=== PATIENT | male | born 1955 | race Caucasian/White ===

== ENCOUNTER 2024-02-28 19:33 | Observation (INO) | payer MEDICARE, MEDICAID, SELFPAY ==
--- NOTE | ~2024-02-28 | CT_ITS ---
EXAMINATION: CT brain wo con DATE: 02/28/2024 20:10 INDICATION: left-sided weakness /numbness . TECHNIQUE: Computed tomography (CT) of the head was performed without intravenous contrast. The mA wa s adjusted according to patient size. Iterative reconstruction technique was employed. The dose-lengt h product was 681.00 mGy-cm. COMPARISON: None. FINDINGS: No acute intracranial hemorrhage or extra-axial fluid collection. No hydrocephalus, mass, or herniation. No acute ischemic infarct. Unremarkable dural venous sinus attenuation. No acute osseous abnormality. The aerated spaces are clear. Mild atrophy and chronic white matter change. Atherosclerotic intracranial calcification. IMPRESSION: No acute intracranial process. Reviewed, dictated and finalized at location K. MEAT COOK
--- NOTE | ~2024-02-28 | CT_ITS ---
CT ANGIOGRAM NECK AND HEAD History: Left-sided weakness. Technique: Serial spiral axial images through the head and neck were obtained during arterial phase I V injection of 100 cc of Omnipaque 350. 3-D postprocessing and MIP images were then reconstructed on the remote workstation. Dose reduction technique was used on this scan by utilizing automated exposur e control and iterative reconstruction technique. The dose-length product (DLP) was 1024.60 mGy-cm. CTA neck findings: Bilateral vertebral arteries are patent. Right vertebral artery terminates as the right PICA, normal variant. Bilateral common carotid, internal carotid, and external carotid arterie s are patent. There is calcified plaque at the origin of the right internal carotid artery without si gnificant stenosis. The proximal right internal carotid artery demonstrates 0% stenosis relative to t he normal distal artery lumen diameter. The proximal left internal carotid artery demonstrates 0% montse nosis relative to the normal distal artery lumen diameter. CTA head findings: Distal vertebral arteries, basilar artery, and posterior cerebral arteries are pat ent. Distal internal carotid arteries, middle cerebral arteries, and anterior cerebral arteries are p atent. No large vessel occlusion or stenosis. No aneurysm. Impression: No significant abnormality seen. Reviewed, dictated and finalized at location M. TEGIC ACCOUNT EXECUTIVE Impression: No significant abnormality seen.
--- NOTE | ~2024-02-28 | MR_ITS ---
MRI of the brain Clinical History: Left-sided weakness Technique: Axial and sagittal T1-weighted images were acquired. These were followed by axial T2-weigh maurice, diffusion weighted, gradient, and FLAIR images. Findings: There is no acute infarct, internal hemorrhage, or mass lesion. There are moderate chronic white matter ischemic changes in the periventricular white matter bilaterally. Ventricles and subarachnoid spaces are mildly dilated. Orbits are unremarkable. Paranasal sinuses and mastoid air cells are essentially clear. Major intracranial flow voids are intact. Sagittal midline structures are intact. IMPRESSION: No acute infarct, intracranial hemorrhage, or mass lesion. Moderate chronic microvascular ischemic change and mild generalized atrophy. Reviewed, dictated and finalized at [facility]. ICATION SECURITY CONSULTANT
--- NOTE | ~2024-02-28 | XR_ITS ---
EXAMINATION: XR chest 1V portable Exam Date/Time: 02/28/2024 19:58 RENEWALS REPRESENTATIVE HISTORY: shortness of breath Comparison: 05/24/2015. RESULT: Lines, tubes, and devices: None. Lungs and pleura: Clear. Right midlung calcified granulomas. Cardiomediastinal silhouette: Stable. Right hilar node calcification. Other: No acute osseous or upper abdominal finding. IMPRESSION: No acute cardiopulmonary process. Reviewed, dictated and finalized at location K. WALS REPRESENTATIVE
[2024-02-28 19:36] VITALS: BP 144/82; PULSE 75; RESP 18; TEMP 37.3; O2SAT 99
--- NOTE | 2024-02-28 19:40 | ECG_ITS ---
Test Date: 2024-02-28 19:48:56 Measurements Intervals [place] Rate: 72 P: 46 AL: 164 QRS: -44 QRSD: 178 T: 127 QT: 469 QTc: 513 Interpretive Statements SINUS RHYTHM LEFT AXIS DEVIATION POSSIBLE LEFT ATRIAL ENLARGEMENT LEFT BUNDLE BRANCH BLOCK ABNORMAL ECG No previous ECG available for comparison Electronically Signed On 02-28-2024 20:53:22 DOCTOR OF NATUROPATHIC MEDICINE by Philip Regan D.O.
--- NOTE | 2024-02-28 19:52 | PC.NURSE ---
68 year old male bibems for stated weakness of the Left Side and SOB. Patient placed on fresh work wrapper layer o2 at 98% and work of breathing is normal, no accessory muscle usage. This patient is homeless, unkempt. Patient has history of COPD and Cardiac but does not take medication as prescribed because he states it makes him not feel well. 18 G IV to Left AC upon arrival.
--- NOTE | 2024-02-28 19:58 | ED.GENADULT ---
HPI - General Adult General Chief complaint: Weakness Stated complaint: weakness and dyspnea Time Seen by Provider: 02/28/24 19:43 History of Present Illness HPI narrative: patient is a 68-year-old gentleman who presents emergency department with chief complaint of shortness of breath and left-sided numbness. The patient reports that he was at [facility] across the street from [facility] and started having shortness of breath and noticed that he had weakness in his left arm and tingling in his left arm and leg. Patient reports that he was unsteady with his gait and reports that they called EMS and were told that [facility] is not accepting patients currently and they would have to take him to another hospital. The patient states that his tingling in his arm and weakness in his arm has improved and reports that he has some slight tingling in his left elbow area the patient reports that he has had shortness of breath with exertion Related Data Home Medications Medication Instructions Recorded Confirmed pramipexole 0.5 mg tablet 0.5 mg PO TID 05/07/19 Allergies Allergy/AdvReac Type Severity Reaction Status Date / Time Penicillins Allergy Unknown Verified 09/22/13 14:24 Review of Systems Review of Systems: A 10 system review of systems was completed on the patient and is negative except for what is stated in the HPI. Nursing and ancillary documentation was reviewed. [facility] Family History Family History Sibling Patient's brother is Mother Family history unknown, Onset Age: 81 Other Diabetes mellitus Family history of allergic disorder Family history of cardiovascular disease Family history of malignant neoplasm Hypertension Social History Social History Smoking status: Heavy tobacco smoker Alcohol intake: current Exam Narrative: GENERAL: Well-appearing, well-nourished, and in no acute distress. HEAD: Normocephalic, atraumatic. EYES: PERRLA and EOMI. ENT: Nares clear, no rhinorrhea or epistaxis. Mucous membranes moist. NECK: Supple. CHEST: Clear to auscultation. No respiratory distress. HEART: Regular rate and rhythm. No murmur heard. Normal peripheral pulses. ABDOMEN: Soft, nontender, nondistended, normal active bowel sounds. EXTREMITIES: Normal range of motion. No edema. SKIN: Warm, dry, no rash. NEURO: No focal deficits. Alert and oriented x3. PSYCH: Normal mood and affect. Course Vital Signs Vital signs: Vital Signs Temperature 37.3 C 02/28/24 19:36 Pulse Rate 75 02/28/24 19:36 Respiratory Rate 18 02/28/24 19:36 Blood Pressure 144/82 H 02/28/24 19:36 Pulse Oximetry 99 02/28/24 19:36 Oxygen Delivery Room Air 02/28/24 19:36 Temperature 37.3 C 02/28/24 19:36 Pulse Rate 75 02/28/24 19:36 Respiratory Rate 18 02/28/24 19:36 Blood Pressure 144/82 H 02/28/24 19:36 Pulse Oximetry 99 02/28/24 19:36 Oxygen Delivery Room Air 02/28/24 19:36 Medical Decision Making MDM Narrative Medical decision making narrative: NIH is 0 differential diagnosis includes ACS, TIA, near syncope, electrolyte abnormality, CC was within normal limits CMP was within normal limits troponin 0.029 repeat is 0.[address] head showed no acute abnormality chest x-ray showed no focal infiltrate CTA head neck showed no evidence of large vessel occlusion Vital Signs Vital Signs: Vital Signs Temperature 37.3 C 02/28/24 19:36 Pulse Rate 75 02/28/24 19:36 Respiratory Rate 18 02/28/24 19:36 Blood Pressure 144/82 H 02/28/24 19:36 Pulse Oximetry 99 02/28/24 19:36 Oxygen Delivery Room Air 02/28/24 19:36 Temperature 37.3 C 02/28/24 19:36 Pulse Rate 75 02/28/24 19:36 Respiratory Rate 18 02/28/24 19:36 Blood Pressure 144/82 H 02/28/24 19:36 Pulse Oximetry 99 02/28/24 19:36 Oxygen Delivery Room Air 02/28/24 19:36 Lab Data 02/28/24 20:19 02/28/24 20:19 Labs: Lab Results 02/28/24 02/28/24 02/28/24 Range/Units 20:05 20:19 22:37 WBC 6.1 (4.5-10.0) K/mm3 RBC 3.90 L (4.6-6.20) M/mm3 Hgb 11.5 L (14.0-18.0) g/dL Hct 34.7 L (42.0-52.0) % MCV 89.0 (80-100) fl MCH 29.5 (26-34) pg MCHC 33.1 (32-36) g/dl RDW 13.4 (11.5-14.5) % Plt Count 268 (150-375) k/mm3 MPV 11.5 H (7.4-10.4) fl Immature Gran % (Auto) 0.5 (0-0.5) % Neut % (Auto) 63.3 (45.5-73.1) % Lymph % (Auto) 19.2 (18.3-44.2) % [place] % (Auto) 10.3 H (2.6-8.5) % Eos % (Auto) 5.1 H (0-4.4) % Baso % (Auto) 1.6 H (0.2-1.2) % Lymph # (Auto) 1.17 (0.9-3.2) K/mm3 [place] # (Auto) 0.6 (0.1-0.6) K/mm3 Eos # (Auto) 0.3 (0-0.3) K/mm3 Baso # (Auto) 0.1 (0.0-0.1) K/mm3 Abs Immat Gran (auto) 0.03 (0.00-0.031) K/mm3 Absolute Neuts (auto) 3.9 (1.3-6.7) K/mm3 Absolute Nucleated RBC 0.000 (0.0-0.012) K/mm3 Nucleated RBC % 0.0 (0.0-0.2) % PT 13.6 (11.1-14.7) Seconds INR 1.0 APTT 28.4 (22.3-36.8) Seconds Sodium 138 (137-145) mmol/L Potassium 3.7 (3.4-5.0) mmol/L Chloride 106 (98-107) mmol/L Carbon Dioxide 24 (22-30) mmol/L Anion Gap 8 (4-12) mmol/L BUN 23 H (9-20) mg/dL Creatinine 0.90 (0.7-1.3) mg/dL Estim Creat Clear Calc 61 ml/min Estimated GFR > 60 (59 - ) Glucose 103 (65-110) mg/dL Lactic Acid 1.0 (0.7-2.0) mmol/L Calcium 9.0 (8.4-10.2) mg/dL Magnesium 2.1 (1.6-2.3) mg/dL Total Bilirubin 0.8 (0.2-1.3) mg/dL AST 21 (17-59) U/L ALT 9 (6-50) U/L Alkaline Phosphatase 71 (38-126) U/L Troponin I 0.029 0.034 (0.000-0.034) ng/mL NT-Pro-B Natriuret Pep 2770 H (19.9-100) pg/mL Total Protein 7.0 (6.3-8.2) g/dL Albumin 4.1 (3.5-5.1) g/dL Procalcitonin 0.0 ng/mL Urine Color Yellow (Yellow) Urine Appearance Clear (Clear) Urine pH 6.5 (5.0-9.0) Ur Specific [place] 1.024 (1.001-1.035) Urine Protein Negative (Negative) mg/dL Urine Glucose (UA) Negative (Negative) mg/dL Urine Ketones Trace H (Negative) mg/dL Ur Blood (Man) Negative (Negative) Urine Nitrate Negative (Negative) Urine Bilirubin Negative (Negative) Urine Urobilinogen 1.0 (<2.0) mg/dL Leukocyte Esterase Rfl Negative (Negative) JOSE/UL Influenza A (RT-PCR) Negative (Negative) Influenza B (RT-PCR) Negative (Negative) RSV (RT-PCR) Negative (Negative) SARS-CoV-2 RNA (RT-PCR) Negative (Negative) Discharge Plan Discharge Clinical Impression: Left sided numbness, Breath shortness Patient Disposition: Still a Patient Condition: Stable Prescriptions: No Action pramipexole 0.5 mg tablet 0.5 mg PO TID Follow-up/Referrals: Cathleen,Braxton Shultz MD [Non-Staff] - Time of Disposition: 01:30
[2024-02-28 20:28] LABS: Basophils Absolute Auto 0.1 K/mm3 (0.0-0.1); Basophils Percent Auto 1.6 % (0.2-1.2); Eosinophils Absolute Auto 0.3 K/mm3 (0-0.3); Eosinophils Percent Auto 5.1 % (0-4.4); Hematocrit 34.7 % (42.0-52.0); Hemoglobin 11.5 g/dL (14.0-18.0); Immature Granulocyte Absolute 0.03 K/mm3 (0.00-0.031); Immature Granulocyte Percent A 0.5 % (0-0.5); Lymphocytes Absolute Auto 1.17 K/mm3 (0.9-3.2); Lymphocytes Percent Auto 19.2 % (18.3-44.2); Mean Corpuscular HGB Conc 33.1 g/dl (32-36); Mean Corpuscular Hemoglobin 29.5 pg (26-34); Mean Platelet Volume 11.5 fl (7.4-10.4); Monocytes Absolute Auto 0.6 K/mm3 (0.1-0.6); Monocytes Percent Auto 10.3 % (2.6-8.5); Neutrophils Absolute Auto 3.9 K/mm3 (1.3-6.7); Neutrophils Percent Auto 63.3 % (45.5-73.1); Platelet Count Result 268 k/mm3 (150-375); Red Cell Distribution Width 13.4 % (11.5-14.5); White Blood Count 6.1 K/mm3 (4.5-10.0)
[2024-02-28 20:42] LABS: Prothrombin Time 13.6 Seconds (11.1-14.7)
[2024-02-28 20:43] LABS: Partial Thromboplastin Time 28.4 Seconds (22.3-36.8)
[2024-02-28 20:47] LABS: Alanine Aminotransferase 9 U/L (6-50); Albumin Level 4.1 g/dL (3.5-5.1); Alkaline Phosphatase 71 U/L (38-126); Anion Gap 8 mmol/L (4-12); Aspartate Amino Transferase 21 U/L (17-59); Bilirubin,Total 0.8 mg/dL (0.2-1.3); Blood Urea Nitrogen 23 mg/dL (9-20); Carbon Dioxide 24 mmol/L (22-30); Chloride 106 mmol/L (98-107); Estimated CRCL calculation 61 ml/min; Estimated Glomerular Filt Rate > 60; Glucose 103 mg/dL (65-110); Magnesium 2.1 mg/dL (1.6-2.3); Potassium 3.7 mmol/L (3.4-5.0); Sodium 138 mmol/L (137-145)
[2024-02-28 20:59] LABS: NT Pro B Type Natriuretic Pept 2770 pg/mL (19.9-100); Troponin I 0.029 ng/mL (0.000-0.034)
[2024-02-28 21:05] LABS: Influenza A QL RT-PCR Negative (Negative); Influenza B QL RT-PCR Negative (Negative); RSV RNA, RT-PCR Negative (Negative); SARS-CoV-2 RNA PCR Negative (Negative)
[2024-02-28 22:46] LABS: Add Urine Microscopic? NO; Appearance Urine Clear (Clear); Bilirubin Urine Negative (Negative); Blood Urine Negative (Negative); Color Urine Yellow (Yellow); Glucose Urine UA Negative (Negative); Ketones Urine Trace mg/dL (Negative); Leukocyte Esterase Ur Negative LEU/UL (Negative); Nitrate Urine Negative (Negative); Protein Urine Negative (Negative); Specific Grav Ur 1.024 (1.001-1.035); pH Urine 6.5 (5.0-9.0)
[2024-02-28 23:05] LABS: Troponin I 0.034 ng/mL (0.000-0.034)
[2024-02-29] VITALS (20 sets, daily range): BP systolic 109–143; BP diastolic 57–72; PULSE 66–91; RESP 16–20; TEMP 36.3–36.8; O2SAT 95–98; BMI 18.8
[2024-02-29] MEDS: ASPIRIN 81 MG CHEWABLE TABLET 324 MG PO (01:29)
[2024-02-29] MEDS: IPRATROPIUM 0.5 MG/ALBUTEROL SULFATE 2.5 MG AMPUL.NEB 3 ML INHALATION ×4 (02:23→20:04)
--- NOTE | 2024-02-29 02:30 | ADMGEN ---
This patient, Charles Choudhury, was admitted to Medical Room 255-. Patient/family oriented to hospital policies and general routines including ID bracelet, bed and alarms, visiting hours, pain management, procedures, bathroom and other care routines, personal items, smoking policy, room service/diet, and visiting hours. Information on how to activate the Rapid Response Team has been discussed. Patient/Family are encouraged to report perceived risks to care and to ask questions if they do not understand what they are told or what they should do.
[2024-02-29] MEDS: ACETAMINOPHEN 325 MG TABLET 650 MG PO (02:56)
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
[2024-02-29 03:53] LABS: Ethanol < 10 mg/dL (<10)
[2024-02-29] MEDS: FLUTICASONE/SALMETEROL 115-21 MCG INHALER 1 PUFF 2 PUFF INHALATION ×2 (09:05→20:04)
[2024-02-29] MEDS: ASPIRIN 325 MG TABLET PO (10:12)
[2024-02-29 10:14] LABS: Amphetamine Screen Urine Negative (Negative); Barbiturate Screen Urine Negative (Negative); Benzodiazepines Screen Urine Negative (Negative); Cannabinoid Screen Urine Negative (Negative); Cocaine Screen Urine Negative (Negative); Methadone Screen Urine Negative (Negative); Opiate Screen Urine Negative (Negative); Phencyclidine Screen Urine Negative (Negative)
--- NOTE | 2024-02-29 15:53 | PM.IMPN ---
Progress Note: A&P Assessment and Plan (1) Left sided numbness: Code(s): R20.0 - Anesthesia of skin Status: Acute (2) Shortness of breath: Code(s): R06.02 - Shortness of breath Status: Acute (3) Polysubstance abuse: Code(s): F19.10 - Other psychoactive substance abuse, uncomplicated Status: Acute (4) Unsheltered homelessness: Code(s): Z59.02 - Unsheltered homelessness Status: Acute (5) COPD (chronic obstructive pulmonary disease): Qualifiers: COPD type: unspecified COPD Qualified Code(s): J44.9 - Chronic obstructive pulmonary disease, unspecified Code(s): J44.9 - Chronic obstructive pulmonary disease, unspecified Status: Acute Plan This is a 68-year-old male who presents to the ED with left-sided weakness and numbness which has resolved completely after few hours.. CT of the head and CT of the head and neck demonstrated no acute process. Patient is on telemetry and there is been no arrhythmias. Patient reports he had a recent echocardiogram any there august or December. MRI brain this a.m. negative for acute stroke. Patient already on aspirin which will be continued. Treat as TIA. Statin. Order echo Shortness of breath related to underlying COPD. Chest x-ray with no acute abnormality. Started on Advair. Homelessness: Care coordination consultation Hepatitis-C HIV History of IV drug use has not used since 1997. Chronic tobacco use Congestive heart failure COPD Noncompliance with medication therapy DVT prophylaxis Lovenox DNR Subjective Date/time seen: 02/29/24 15:53 Interval history: no overnight evvents, weakness has resolved. no new compalints. Review of Systems Review of Systems: All systems reviewed & are unremarkable except as noted in HPI and below Exam Narrative: GENERAL: Well-appearing, well-nourished, and in no acute distress. HEAD: Normocephalic, atraumatic. EYES: PERRLA and EOMI. ENT: Nares clear, no rhinorrhea or epistaxis. Mucous membranes moist. NECK: Supple. CHEST: Clear to auscultation. No respiratory distress. HEART: Regular rate and rhythm. No murmur heard. Normal peripheral pulses. ABDOMEN: Soft, nontender, nondistended, normal active bowel sounds. EXTREMITIES: Normal range of motion. No edema. SKIN: Warm, dry, no rash. NEURO: No focal deficits. Alert and oriented x3. PSYCH: Normal mood and affect. Objective Data Vital Signs Vital Signs: Vital Signs - 24 hr 02/28/24 19:36 02/29/24 02:22 02/29/24 02:26 Temperature 99.1 F Pulse Rate 75 80 Respiratory Rate 18 19 Blood Pressure 144/82 H Pulse Oximetry 99 96 Oxygen Delivery Room Air Room Air Fraction of Inspired Oxygen 02/29/24 02:30 02/29/24 02:21 02/29/24 03:16 Temperature 97.3 F L Pulse Rate 78 75 78 Respiratory Rate 19 18 19 Blood Pressure 143/72 H Pulse Oximetry 97 96 Oxygen Delivery Room Air Fraction of Inspired Oxygen 02/29/24 04:00 02/29/24 06:00 02/29/24 08:59 Temperature 98.3 F Pulse Rate 84 87 Respiratory Rate 18 Blood Pressure 109/72 Pulse Oximetry 96 95 Oxygen Delivery Room Air Fraction of Inspired Oxygen 02/29/24 08:59 02/29/24 09:05 02/29/24 10:12 Temperature Pulse Rate 90 85 83 Respiratory Rate 20 20 Blood Pressure Pulse Oximetry Oxygen Delivery Fraction of Inspired Oxygen 02/29/24 13:33 02/29/24 13:33 02/29/24 13:39 Temperature Pulse Rate 91 90 Respiratory Rate 20 20 Blood Pressure Pulse Oximetry 96 Oxygen Delivery Room Air Fraction of Inspired Oxygen 02/29/24 13:44 02/29/24 12:00 Temperature 98 F Pulse Rate 77 66 Respiratory Rate 16 Blood Pressure 140/57 L Pulse Oximetry 98 Oxygen Delivery Fraction of Inspired Oxygen Intake/Output Intake/Output: Intake & Output 02/26/24 02/27/24 02/28/24 02/29/24 23:59 23:59 23:59 23:59 Intake Total 360 Output Total 0 Balance 360 Meds/Results Medications: Active Medications Generic Name Dose Route Start Last Admin Trade Name Freq PRN Reason Stop Dose Admin Acetaminophen 650 mg 02/29/24 02:30 02/29/24 02:56 Acetaminophen 325 Mg Tablet PO 650 mg Q6H PRN Administration Mild Pain (1-3) or Fever Albuterol/Ipratropium 3 ml 02/29/24 02:00 02/29/24 13:33 Ipratropium 0.5 Mg/Albuterol Sulfate 2.5 Mg Ampul.Neb 3 Ml INHALATION 3 ml Q6HRT GRACE Administration Aspirin 325 mg 02/29/24 08:00 02/29/24 10:12 Aspirin 325 Mg Tablet PO 325 mg DAILY@0800 GRACE Administration Diphenhydramine HCl 25 mg 02/29/24 03:46 Diphenhydramine Hcl Cap 25 Mg Capsule PO HS PRN Allergy Symptoms/insomnia Fluticasone/Salmeterol 2 puff 02/29/24 08:00 02/29/24 09:05 Fluticasone/Salmeterol 115-21 Mcg Inhaler 1 Puff INHALATION 2 puff Q12HRT GRACE Administration Radiology Results: ITS Impressions Chest X-Ray 02/28/24 20:09 IMPRESSION: No acute cardiopulmonary process. Head CT 02/28/24 20:13 IMPRESSION: No acute intracranial process. Head/Neck CTA 02/29/24 09:04 Impression: No significant abnormality seen. Brain MRI 02/29/24 09:12 IMPRESSION: No acute infarct, intracranial hemorrhage, or mass lesion. Moderate chronic microvascular ischemic change and mild generalized atrophy. Labs Labs: Laboratory Results - last 24 hr 02/28/24 02/28/24 02/28/24 20:05 20:19 22:37 WBC 6.1 RBC 3.90 L Hgb 11.5 L Hct 34.7 L MCV 89.0 MCH 29.5 MCHC 33.1 RDW 13.4 Plt Count 268 MPV 11.5 H Immature Gran % (Auto) 0.5 Neut % (Auto) 63.3 Lymph % (Auto) 19.2 Treasure % (Auto) 10.3 H Eos % (Auto) 5.1 H Baso % (Auto) 1.6 H Lymph # (Auto) 1.17 Treasure # (Auto) 0.6 Eos # (Auto) 0.3 Baso # (Auto) 0.1 Abs Immat Gran (auto) 0.03 Absolute Neuts (auto) 3.9 Absolute Nucleated RBC 0.000 Nucleated RBC % 0.0 PT 13.6 INR 1.0 APTT 28.4 Sodium 138 Potassium 3.7 Chloride 106 Carbon Dioxide 24 Anion Gap 8 BUN 23 H Creatinine 0.90 Estim Creat Clear Calc 61 Estimated GFR > 60 Glucose 103 Lactic Acid 1.0 Calcium 9.0 Magnesium 2.1 Total Bilirubin 0.8 AST 21 ALT 9 Alkaline Phosphatase 71 Troponin I 0.029 0.034 NT-Pro-B Natriuret Pep 2770 H Total Protein 7.0 Albumin 4.1 Procalcitonin 0.0 Urine Color Yellow Urine Appearance Clear Urine pH 6.5 Ur Specific [place] 1.024 Urine Protein Negative Urine Glucose (UA) Negative Urine Ketones Trace H Ur Blood (Man) Negative Urine Nitrate Negative Urine Bilirubin Negative Urine Urobilinogen 1.0 Leukocyte Esterase Rfl Negative Urine Opiates Screen Urine Methadone Screen Ur Barbiturates Screen Ur Phencyclidine Scrn Ur Amphetamine Screen U Benzodiazepines Scrn Urine Cocaine Screen U Cannabinoids Screen Ethyl Alcohol < 10 Influenza A (RT-PCR) Negative Influenza B (RT-PCR) Negative RSV (RT-PCR) Negative SARS-CoV-2 RNA (RT-PCR) Negative 02/29/24 09:28 WBC RBC Hgb Hct MCV MCH MCHC RDW Plt Count MPV Immature Gran % (Auto) Neut % (Auto) Lymph % (Auto) Treasure % (Auto) Eos % (Auto) Baso % (Auto) Lymph # (Auto) Treasure # (Auto) Eos # (Auto) Baso # (Auto) Abs Immat Gran (auto) Absolute Neuts (auto) Absolute Nucleated RBC Nucleated RBC % PT INR APTT Sodium Potassium Chloride Carbon Dioxide Anion Gap BUN Creatinine Estim Creat Clear Calc Estimated GFR Glucose Lactic Acid Calcium Magnesium Total Bilirubin AST ALT Alkaline Phosphatase Troponin I NT-Pro-B Natriuret Pep Total Protein Albumin Procalcitonin Urine Color Urine Appearance Urine pH Ur Specific [place] Urine Protein Urine Glucose (UA) Urine Ketones Ur Blood (Man) Urine Nitrate Urine Bilirubin Urine Urobilinogen Leukocyte Esterase Rfl Urine Opiates Screen Negative Urine Methadone Screen Negative Ur Barbiturates Screen Negative Ur Phencyclidine Scrn Negative Ur Amphetamine Screen Negative U Benzodiazepines Scrn Negative Urine Cocaine Screen Negative U Cannabinoids Screen Negative Ethyl Alcohol Influenza A (RT-PCR) Influenza B (RT-PCR) RSV (RT-PCR) SARS-CoV-2 RNA (RT-PCR)
[2024-02-29 17:26] LABS: Cholesterol 123 mg/dL (0-200); HDL Direct 46 mg/dL; Triglycerides 87 mg/dL (<150)
[2024-02-29 17:37] LABS: LDL Cholesterol Direct 58 mg/dL
[2024-02-29 19:11] LABS: Hemoglobin A1C 5.7 % (<5.7)
[2024-03-01] VITALS (7 sets, daily range): BP systolic 163; BP diastolic 88; PULSE 74–94; RESP 16–18; TEMP 36.6; O2SAT 96–100
--- NOTE | 2024-03-01 | ECHO_ITS ---
Patient Info Name: Charles Choudhury Age: 68 years : 1955 Gender: Male Ht: 67 in Wt: 115 lbs BSA: 1.56 m2 HR: 97 bpm BP: 156 / 88 mmHg Heart Rhythm: Sinus Rhythm Technical Quality: Good Exam Date: 03/01/2024 10:25 AM Exam Location: Echo Lab Patient Status: Inpatient Admit Date: 02/29/2024 Staff Ordering Physician: Naveed Arizmendi MD Automatic Winder Operator: Errol Moe RDCS Attending Provider: Sangeeta Vale DO Exam Type: CA echo doppler w bubble study Study Info Indications - TIA Complete two-dimensional, color flow and Doppler transthoracic echocardiogram is performed with agitated saline. Summary 1. Left ventricular systolic function is severely reduced, estimated at 25-30%. 2. There is mildly increased left ventricular wall thickness. 3. The left ventricular diastolic function is grade I diastolic dysfunction. 4. There is mild mitral valve regurgitation. 5. The mitral valve has thickened leaflets. 6. There is mild tricuspid valve regurgitation. 7. No pulmonary hypertension, estimated pulmonary arterial systolic pressure is 29 mmHg. Left Ventricle Left ventricular chamber dimension is normal. Left ventricular systolic function is severely reduced, estimated at 25-30%. There is mildly increased left ventricular wall thickness. The left ventricular diastolic function is grade I diastolic dysfunction. Right Ventricle Right ventricular chamber dimension is normal. Right ventricular systolic function is normal. Left Atria Left atrial chamber dimension is normal. Right Atria Right atrial chamber dimension is normal. Atrial Septum Intact interatrial septum visualized by agitated saline imaging. Aortic Valve The aortic valve is trileaflet. There is mild aortic valve sclerosis. There is no aortic valve stenosis. There is no aortic valve regurgitation. Pulmonic Valve The pulmonic valve is normal. There is no pulmonic valve stenosis. There is no pulmonic regurgitation. Mitral Valve The mitral valve has thickened leaflets. There is no mitral valve stenosis. There is mild mitral valve regurgitation. Tricuspid Valve The tricuspid valve leaflets are normal. There is no significant tricuspid valve stenosis. There is mild tricuspid valve regurgitation. No pulmonary hypertension, estimated pulmonary arterial systolic pressure is 29 mmHg. Pericardium/Pleural The pericardium appears normal. There is no pericardial effusion. Inferior Vena Cava Normal inferior vena cava with >50% collapse upon inspiration consistent with Empty right atrial pressure, 5 mmHg. Aorta The aortic root size at the sinus of Valsalva is normal. The prox ascending aorta size is normal. Left Ventricular Outflow Tract Name Value Normal LVOT 2D LVOT Diameter 1.9 cm LVOT Doppler LVOT Peak Gradient 5 mmHg LVOT Mean Gradient 3 mmHg LVOT VTI 19 cm LVOT VTI/AV VTI Ratio 0.7 LVOT Stroke Volume 55 ml LVOT CO 3.6 l/min LVOT CI 2.3 l/min/m2 Mitral Valve Name Value Normal MV Doppler MV Decel Wilkinson 450 cm/s2 MV PHT 49 ms MV Area (PHT) 4.5 cm2 4.0-5.0 MV Regurgitation Doppler MR Peak Gradient 81 mmHg MV Diastolic Function MV E Peak Velocity 76 cm/s MV A Peak Velocity 102 cm/s MV E/A 0.7 MV Decel Time 169 ms MV Annular TDI MV E/e' (Septal) 13.7 <=8.0 MV E/e' (Lateral) 8.2 <=8.0 MV E/e' (Average) 11.0 Tricuspid Valve Name Value Normal TV Regurgitation Doppler TR Peak Velocity 244 cm/s TR Peak Gradient 24 mmHg Estimated PAP/RSVP RA Pressure 5 mmHg <=5 PA Systolic Pressure 29 mmHg <36 RV Systolic Pressure 29 mmHg <36 Aortic Valve Name Value Normal AV Doppler AV Peak Velocity 138 cm/s AV Peak Gradient 8 mmHg AV Mean Gradient 5 mmHg AV VTI 27 cm AV Area (Cont Eq VTI) 2.0 cm2 >=3.0 AV Area (Cont Eq Miah) 2.3 cm2 AV Regurgitation 2D LVOT Area 2.9 cm2 Ventricles Name Value Normal LV Dimensions 2D/MM IVS Diastolic Thickness (2D) 1.1 cm 0.6-1.0 LVID Diastole (2D) 5.6 cm 4.2-5.8 LVIW Diastolic Thickness (2D) 1.2 cm 0.6-1.0 LVID Systole (2D) 4.0 cm 2.5-4.0 LVOT Diameter 1.9 cm LV Mass (2D Cubed) 251.17 g 88.00-224.00 LV Mass Index (2D Cubed) 161 g/m2 49-115 Relative Wall Thickness (2D) 0.42 LV Fractional Shortening/Ejection Fraction 2D/MM LV Fractional Shortening (2D) 28 % 25-43 LV EF (2D Teicholz) 53 % 52-72 LV Diastolic Volume (4C MOD) 142 ml LV EF (4C MOD) 46 % LV Diastolic Volume (2C MOD) 162 ml LV EF (2C MOD) 42 % LV Diastolic Volume (BP MOD) 152 ml 62-150 LV Diastolic Volume Index (BP MOD) 98 ml/m2 34-74 LV Systolic Volume (BP MOD) 88 ml 21-61 LV Systolic Volume Index (BP MOD) 57 ml/m2 11-31 LV EF (BP MOD) 42 % 52-72 LV Diastolic Length (4C) 9.1 cm LV Systolic Length (4C) 7.3 cm LV Stroke Volume (4C MOD) 66 ml Atria Name Value Normal LA Dimensions LA Volume (4C A-L) 47 ml LA Volume (BP A-L) 49 ml RA Dimensions RA Area (4C) 13.1 cm2 <=18.0 Report Signatures
[2024-03-01] MEDS: FLUTICASONE/SALMETEROL 115-21 MCG INHALER 1 PUFF 2 PUFF INHALATION (07:16)
[2024-03-01] MEDS: IPRATROPIUM 0.5 MG/ALBUTEROL SULFATE 2.5 MG AMPUL.NEB 3 ML INHALATION (07:17)
[2024-03-01] MEDS: ASPIRIN 325 MG TABLET PO (07:57)
--- NOTE | 2024-03-01 12:12 | PM.DS ---
DS: Admitting Diagnosis Discharge Date 03/01/2024 Admitting Diagnosis Left-sided weakness DS: Discharge Diagnosis Discharge Diagnosis (1) Left sided numbness: Code(s): R20.0 - Anesthesia of skin Status: Acute (2) Shortness of breath: Code(s): R06.02 - Shortness of breath Status: Acute (3) Polysubstance abuse: Code(s): F19.10 - Other psychoactive substance abuse, uncomplicated Status: Acute (4) Unsheltered homelessness: Code(s): Z59.02 - Unsheltered homelessness Status: Acute (5) COPD (chronic obstructive pulmonary disease): Qualifiers: COPD type: unspecified COPD Qualified Code(s): J44.9 - Chronic obstructive pulmonary disease, unspecified Code(s): J44.9 - Chronic obstructive pulmonary disease, unspecified Status: Acute DS: Summary Hospital Course Hospital Course: This is a 68-year-old male who presents to the ED with left-sided weakness and numbness which has resolved completely after few hours.. CT of the head and CT of the head and neck demonstrated no acute process. Patient is on telemetry and there is been no arrhythmias. Patient reports he had a recent echocardiogram any there august or December. MRI brain this a.m. negative for acute stroke. Patient already on aspirin which will be continued. Treat as TIA. Statin. Recent echo reviewed. EF was 19 % in August 2023 just followed by echo in December 2023 which is up to 25%. He has been started on Coreg and losartan and Aldactone. Does not seem to be taking medication. Advised to follow-up with cardiology. Repeat echo here was done she is pending currently but approximately on 40% EF noted. A1c is normal and LDL is 58. He was on carvedilol and losartan her medical records obtained from [place] which he is noncompliant with. He Is advised to stay on this medication and follow up with [employer]. Shortness of breath related to underlying COPD. Chest x-ray with no acute abnormality. Started on Advair and will be ordered Homelessness: Care coordination consultation Hepatitis-C HIV History of IV drug use has not used since 1997. Chronic tobacco use Congestive heart failure well compensated advised to follow-up with cardiology for medications COPD Noncompliance with medication therapy DVT prophylaxis Lovenox DNR Time Spent with Patient Time attestation: Total time spent providing and/or coordinating discharge services: 35 minutes Exam Narrative: GENERAL: Well-appearing, well-nourished, and in no acute distress. HEAD: Normocephalic, atraumatic. EYES: PERRLA and EOMI. ENT: Nares clear, no rhinorrhea or epistaxis. Mucous membranes moist. NECK: Supple. CHEST: Clear to auscultation. No respiratory distress. HEART: Regular rate and rhythm. No murmur heard. Normal peripheral pulses. ABDOMEN: Soft, nontender, nondistended, normal active bowel sounds. EXTREMITIES: Normal range of motion. No edema. SKIN: Warm, dry, no rash. NEURO: No focal deficits. Alert and oriented x3. PSYCH: Normal mood and affect. DS: Data Data Completed and Pending Labs on day of discharge: Labs from last 24 hours 02/29/24 02/29/24 03:00 00:00 Hemoglobin A1c 5.7 Triglycerides 87 Cholesterol 123 LDL Cholesterol Direct 58 HDL Direct 46 Imaging Radiologist's impression: ITS Impressions Chest X-Ray 02/28/24 20:09 IMPRESSION: No acute cardiopulmonary process. Head CT 02/28/24 20:13 IMPRESSION: No acute intracranial process. Head/Neck CTA 02/29/24 09:04 Impression: No significant abnormality seen. Brain MRI 02/29/24 09:12 IMPRESSION: No acute infarct, intracranial hemorrhage, or mass lesion. Moderate chronic microvascular ischemic change and mild generalized atrophy. Discharge Plan Discharge Attending physician on discharge: Naveed Arizmendi Consulting providers: Isaac Long Discharging Clinician: Naveed Arizmendi Anticipated Discharge Date/Time: 03/01/24 12:15 Patient Disposition: Home, Self-Care Activity: as tolerated Diet: heart healthy Patient Instructions: Antibiotic Form, Heart Failure (GEN) Stand Alone Forms: General Discharge Information Follow-up/Referrals: Isaac Long MD [Physician] - 1 Week Discharge Medications: New fluticasone propion-salmeterol [Advair HFA] 115-21 mcg/actuation Hfa Aerosol Inhaler 2 puff inhalation Q12HRT Qty: 30 0RF aspirin 81 mg tablet,delayed release (DR/EC) 81 mg PO DAILY Qty: 30 0RF carvedilol 3.125 mg tablet 3.125 mg PO BID Qty: 60 0RF Rx Instructions: must administer with a meal/food losartan 25 mg tablet 25 mg PO DAILY Qty: 30 0RF Continued diphenhydramine HCl [Allergy (diphenhydramine)] 25 mg Capsule 25 mg PO HS PRN (Reason: Allergy Symptoms) Date of admission: 02/29/24 01:27 Primary Care Provider: PHYSICIAN,[employer]SEM[employer]Y SUPERVISOR Admitting Provider: Sangeeta Vale Attending physician on admission: Sangeeta Vale Condition: Stable Hospitalist MIPS Heart Failure (Exclusion) Patient has history of Heart Transplant or Left Ventricular Assistive Device?: No IF YES, STOP HERE Heart Failure (Qualifier) Patient has current or prior documentation of LVEF less than or equal to 40%, or mod/servere depressed LVSF?: Yes IF NO, STOP HERE If Yes, Heart Failure (Qualifier) Patient was prescribed or already taking an Angiotensin-Converting Enzyme (RUTH) Inhibitor, or Antiotensin Receptor Arlene (ARB): Yes Patient was prescribed or already taking bisoprolol, carvedilol, or sustained release metoprolol succinate: Yes
== END 2024-03-01 12:35 | disposition home or self-care (01) ==
LOC: ANHED 02-29 01:30 → ANH2MED 02-29 08:30
PROVIDERS: Admitting Provider Internal Medicine; Emergency Provider Emergency Medicine; Visit Provider Internal Medicine
DX: R20.0 Anesthesia of skin (principal); R06.02 Shortness of breath; F19.10 Other psychoactive substance abuse, uncomplicated; I50.9 Heart failure, unspecified; J44.9 Chronic obstructive pulmonary disease, unspecified; F17.210 Nicotine dependence, cigarettes, uncomplicated; Z86.19 Personal history of other infectious and parasitic diseases; Z59.02 Unsheltered homelessness; Z66 Do not resuscitate; Z91.141 Patient's other noncompliance with medication regimen due to financial hardship; Z21 Asymptomatic human immunodeficiency virus [HIV] infection status; Z20.822 Contact with and (suspected) exposure to COVID-19
CPT/HCPCS: 36415; 70450; 70496; 70498; 70551; 71045; 80053; 80061; 80307; 81003; 82077; 83036; 83605; 83735; 83880; 84145; 84484; 85025; 85610; 85730; 87637; 93005; 93306; 94640; 96375; 99285; A9270; Q9967

== ENCOUNTER 2024-11-02 07:35 | Emergency (ER) | payer MEDICARE, MEDICAID, SELFPAY ==
--- NOTE | ~2024-11-02 | CT_ITS ---
EXAMINATION: CTA chest PE abdomen pel DATE: 11/02/2024 10:34 CDT INDICATION: TECHNIQUE: Computed tomographic angiography (CTA) of the chest, abdomen, and pelvis was performed wit hout and with 100 mL Omnipaque-350 intravenous contrast. The dose-length product was 340.08 mGy-cm. M aximum intensity projection 3D-reconstructions of the aorta and other arteries were constructed by [place] technologist on a separate workstation. COMPARISON: CT dated 11/02/2024. FINDINGS: CHEST CTA: Severe cardiomegaly. No significant pleural or pericardial effusion. No evidence for pulmonary emboli sm. There is atherosclerosis of the aorta and coronary arteries. There is emphysema. No endobronchial lesions. There is dependent atelectasis. There are calcified granulomas of the right lower lobe. ABDOMEN AND PELVIS CTA: No significant vascular abnormality. The SABRINA, SMA, celiac axis and renal arteries are patent. There i s mild stenosis at the origin of the right renal artery. There is a gastric tube present. There are c alcified granulomas of the spleen. Nonobstructive bowel gas pattern. No free air or free fluid. Gallb ladder is present. There is moderate spondylosis at the cervical thoracic junction and to a lesser de gree throughout the thoracic spine. IMPRESSION: 1. Cardiomegaly. 2: No acute abnormality of the chest, abdomen or pelvis. Reviewed, dictated and finalized at location A.
[2024-11-02 07:36] VITALS: BP 131/84; PULSE 106; RESP 20; TEMP 36.5; O2SAT 98
[2024-11-02 08:28] LABS: Hematocrit 29.7 % (42.0-52.0); Hemoglobin 9.3 g/dL (14.0-18.0); Immature Granulocyte Percent A 0.2 % (0-0.5); Lymphocytes Absolute Auto 0.92 K/mm3 (0.9-3.2); Mean Corpuscular HGB Conc 31.3 g/dl (32-36); Mean Corpuscular Hemoglobin 26.9 pg (26-34); Mean Corpuscular Volume 85.8 fl (80-100); Nucleated Red Blood Cells Absolute Auto 0.000 K/mm3 (0.0-0.012); Nucleated Red Blood Cells Perc 0.0 % (0.0-0.2); Platelet Count Result 298 k/mm3 (150-375); Red Blood Count 3.46 M/mm3 (4.6-6.20); White Blood Count 6.3 K/mm3 (4.5-10.0)
[2024-11-02 08:32] LABS: Add Urine Microscopic? YES; Appearance Urine Clear (Clear); Glucose Urine UA Negative (Negative); Leukocyte Esterase Ur Negative LEU/UL (Negative); Nitrate Urine Negative (Negative); Non Pathogenic Casts 0-2; Specific Grav Ur 1.016 (1.001-1.035)
[2024-11-02 08:48] LABS: Alanine Aminotransferase 13 U/L (6-50); Albumin Level 3.8 g/dL (3.5-5.1); Alkaline Phosphatase 77 U/L (38-126); Anion Gap 8 mmol/L (4-12); Aspartate Amino Transferase 25 U/L (17-59); Bilirubin,Total 0.8 mg/dL (0.2-1.3); Blood Urea Nitrogen 15 mg/dL (9-20); Calcium 9.4 mg/dL (8.4-10.2); Carbon Dioxide 24 mmol/L (22-30); Chloride 106 mmol/L (98-107); Estimated CRCL calculation 50 ml/min; Estimated Glomerular Filt Rate > 60; Glucose 99 mg/dL (65-110); Lipase 258 U/L (23-300); Potassium 3.6 mmol/L (3.4-5.0); Sodium 138 mmol/L (137-145); Total Protein 7.1 g/dL (6.3-8.2)
--- OUTSIDE RECORDS SUMMARY | 2024-11-02 09:10 | XMS_ITS | Clinical Summary ---
Author Organization [facility] Address [address] [address] Care Team Providers Care Host Hostess Name Role Phone Unknown, Unknown Primary Care Provider Unavailab le Source Comments [facility],non-owned Affiliates and Associated Physician Practices is amultiple site organization consisting of ambulatory clinics and hospital sitesin [place], [place], [place] and [place]. This disclosure is being madepursuant to the Care Everywhere program and may not contain all information available regarding this patient. Last updated 18.[facility] timeplazza Allergies Active Allergy Reactions Criticality Noted Date Comments Penicillins Diarrhea,Nausea and/or Vomiting Prednisone Unknown 09/27/2024 Medications * Be aware that medications may not be up to date on this document. Alwaysverify current medications with the patient. aspirin (Aspirin) 81 MG chew tablet Take 1 (one) tablet by mouth once daily (chew and swallow) Active folic acid (Folvite) 1 MG tablet Take 1 (one) tablet by mouth once daily Active sucralfate (Carafate) 1 GM tablet Take 1 (one) tablet by mouth 4 times daily - before meals & nightly Active thiamine (Vitamin B-1) 100 MG tablet Take 1 (one) tablet by mouth once daily Active OLANZapine (ZyPREXA) 2.5 MG tablet Take 1 (one) tablet by mouth 3 times daily as needed (anxiety/agitation ) Active hydrOXYzine HCl (Atarax) 25 MG tablet Take 1 (one) tablet by mouth 4 times daily as needed for Itching Active Nutritional Supplements (Nutritional Supplement Plus) LIQD Take 1 container by mouth 3 times daily Your Registered Dietitian recommends that you continue an oral nutrition supplement 3x daily for 30 days after discharge. High Calorie High Protein Supplement Examples: Ensure Enlive/Ensure Plus High Protein/Boost Plus/Equate Plus 09/24/19 25 Active midodrine (Proamatine) 5 MG tablet Take 3 (three) tablets by mouth 3 times daily before meals 10/18/19 25 Active multiple vitamins with minerals tablet Take 1 (one) tablet by mouth once daily 10/19/19 25 Active traZODone (Desyrel) 50 MG tablet Take 1 (one) tablet by mouth at bedtime 10/18/19 25 Active hyoscyamine (Levsin) 0.125 MG IR tablet Take 1 (one) tablet by mouth every 4 hours as needed for Spasms 20 tablet 09/09/19 25 025 Discontin ued(Tx Complete) empagliflozin (Jardiance) 10 MG tablet Take 1 (one) tablet by mouth once daily 025 Discontin ued(Tx Complete) lisinopril (Prinivil; Zestril) 20 MG tablet Take 1 (one) tablet by mouth once daily 025 Discontin ued(Tx Complete) ivabradine (Corlanor) 5 MG tablet Take 1 (one) tablet by mouth 2 times daily with morning and evening meal 025 Discontin ued(Tx Complete) levoFLOXacin (Levaquin) 750 MG tablet Take 1 (one) tablet by mouth once daily 025 Discontin ued(Tx Complete) metroNIDAZOLE (Flagyl) 500 MG tablet Take 1 (one) tablet by mouth every 8 hours 025 Discontin ued(Tx Complete) enoxaparin (Lovenox) 30 MG/0.3ML injection Inject 0.3 mL subcutaneously once daily 025 Discontin ued(Tx Complete) Active Problems Problem Noted Date Diagnosed Date Abdominal pain 10/08/2024 Small bowel obstruction 09/25/2024 Delirium 09/25/2024 Alcohol abuse 09/25/2024 Drug use 09/25/2024 Systolic heart failure 09/25/2024 Malnutrition, unspecified type 09/22/2024 Chronic hepatitis C without hepatic coma 019 Overview (08/14/2018): Hepatitis B core antibody is negative Genotype 1a Date of Exam: 08/14/2018 (E, kPa) 18.5 CAP 133 Hepatitis C antibody positive in blood 9 Restless leg syndrome 05/19/2018 Encounters Date Type Department Care Team Description 09/24/2024 3:00 PM CDT - 09/24/2024 5:08 PM CDT Surgery [facility] Perioperative Surgery [address] [place] [id number] Maicol Roque MD EXPLORATORY LAPAROTOMY, DRAIN PELVIC ABSCESS, 24 ARABIC gTUBE, LYSIS OF ADHESIONS, COMPONENT SEPARATION BILATERAL WITH UNDERLAY STRATTICE MESH 09/24/2024 2:38 PM CDT Anesthesia Event [facility] Perioperative Surgery [address] [place] [address] [phone] Cheyenne Walker MD Dhanak, Neesha B, DO 09/22/2024 8:39 PM CDT - 10/17/2024 5:19 PM CDT Hospital Encounter [facility] 6N Telemetry [address] [place] [id number] Aj Peterson MD Arekooti, Hasita, MD Thekekara, Joel, MD King, MD Kerrie Pimentel, MD John Barrett, MD Walter Garcia, MD Warner Asencio, MD Pan West Vineela, MD Chacko, Justin, DO Trinidad, MD Amisha Valencia Noor E, MD Kaswan, Nitika, MD Kamat, Anjali, MD Hospitalist Discharge Disposition: Long Term Facility 09/08/2024 12:11 AM CDT - 09/08/2024 3:19 AM CDT Emergency [facility] EMERGENCY DEPARTMENT [address] [place] [phone] Caden Hudson MD Colitis (Primary Dx); Generalized abdominal pain Discharge Disposition: Home or Self Care 09/07/2024 Travel from Last 3 Months Family History Relation Name Status Comments Brother Father Mother Alive Social History Tobacco Use Types Packs/Day Years Used Date Smoking Tobacco: Every Day Cigarettes 0.5 28 Smokeless Tobacco: Never Tobacco Cessation:Ready to Q uit: Not Asked; Counseling Given: Not Answered Alcohol Use Standard Drinks/Week Comments Not Currently 6 (1 standard drink = 0.6 oz pur e alcohol) 6-12 beer on weekends AUDIT-C Answer Date Recorded Q1: How often do you have a drink containing alcohol? Patient unable to answer 09/24/2024 Q2: How many drinks containi ng alcohol do you have on a typical day when you are drinking? Patient unable to answer Q3: How often do you have si x or more drinks on one occasion? Patient unable to answer 09/24/2024 Sex and Gender Information Value Date Recorded Sex Assigned at Not on file Legal Sex Male 5:22 PM [employer] Gender Identity Not on file Sexual Orientation Not on file Last Filed Vital Signs Vital Sign Reading Time Taken Comments Blood Pressure 130/71 10/17/2024 1:05 PM CDT Pulse 67 10/17/2024 1:05 PM CDT Temperature 36.8 C (98.2 F) 10/17/2024 1:05 PM CDT Respiratory Rate 16 10/17/2024 1:05 PM CDT Oxygen Saturation 94% 10/17/2024 1:05 PM CDT Inhaled Oxygen Concentration 45% 10/09/2024 8 :03 AM CDT Weight 39 kg (86 lb) 10/17/2024 4:00 AM CDT Height 170.2 cm (5' 7) 09/23/2024 3:00 AM CDT Body Mass Index 13.47 09/23/2024 3:00 AM CDT Plan of Treatment Health Maintenance Due Date Last Done Comments COLOGUARD (AGES 45-75) - COLON CA SCREENING 1957 COLON MONITORING 1957 COLONOSCOPY - COLON CA SCREENING 1957 CT COLONOGRAPHY - COLON CA SCREENING 1957 Colorectal Cancer Screening 1957 FIT - COLON CA SCREENING 1957 FLEX SIG - COLON CA SCREENING 1957 LIPID TESTING 1957 DTAP/TDAP/TD VACCINES (1 - Tdap) 1976 PNEUMOCOCCAL VACCINE 50+ (1 of 2 - PCV) 1976 ZOSTER VACCINE (1 of 2) 2007 HEPATITIS B VACCINE (1 of 3 - Risk 3-dose series) 2017 Respiratory Syncytial Virus (RSV) Vaccine Pt: or over 60 yrs (1 - Risk 60-74 years 1-dose series) 2017 AAA SCREENING 2022 COVID-19 VACCINE (1 - 2023- season) 2023 DEPRESSION SCREENING 04/14/2024 MEDICARE AWV CALENDAR YEAR 2024 INFLUENZA VACCINE (#1) 2024 HEPATITIS C SCREENING Completed 09/22/2024 , 11/06/2018, 10/09/2018, Additional history exists HIB VACCINE Aged Out No longer eligi ble based on patient's age to complete this topic HPV VACCINE Aged Out No longer eligi ble based on patient's age to complete this topic MENINGOCOCCAL (Group B) VACCINE SHARED DECISION-MAKING Aged Out No longer eligible based on patient's age to complete this topic MENINGOCOCCAL GROUPS A/C/Y/W VACCINE Aged Out No longer eligible based on patient's age to complete this topic Goals Goal Patient Goal Type Associated Problems Recent Progress Patient-Stated? Author Medication Management General On track( 019 12:50 PM [employer]) No Jennifer Roque, RN Note: Expected end date: ongoing Interventions: Take all medications as prescribed Let your doctor know right away about any changes in your medications Make sure to request a refill of your medication at least one week prior to your last dose Medical Devices Implanted Type Area Regional Liaison Device Identifier Shelf Expiration Date Model / Serial / Lot Alloderm Rtu Thck 2.4+/-0.4mm 8.0 X 16cm Implanted:Qty: 1 on 09/24/2024 by Maicol Roque MD at [facility] N/A: Abdomen [employer] Xenia 05/14/2025 [id number] / / [id number] Procedures Procedure Name Priority Date/Time Associated Diagnosis Comments CARDIAC RHYTHM STRIP ORDER 10/19/2024 10:39 PM CDT CBC W/O DIFFERENTIAL AM Draw 10/17/2024 4:57 AM CDT RENAL FUNCTION PANEL AM Draw 10/17/2024 4:57 AM CDT MAGNESIUM BLOOD Routine 10/17/2024 4:57 AM CDT LACTIC ACID BLOOD AM Draw 10/17/2024 4:5 7 AM CDT CBC W/O DIFFERENTIAL AM Draw 10/16/2024 4:57 AM CDT RENAL FUNCTION PANEL AM Draw 10/16/2024 4:57 AM CDT MAGNESIUM BLOOD Routine 10/16/2024 4:57 AM CDT LACTIC ACID BLOOD AM Draw 10/16/2024 4:5 7 AM CDT CBC W/O DIFFERENTIAL AM Draw 10/15/2024 4:21 AM CDT RENAL FUNCTION PANEL AM Draw 10/15/2024 4:21 AM CDT MAGNESIUM BLOOD Routine 10/15/2024 4:21 AM CDT LACTIC ACID BLOOD AM Draw 10/15/2024 4:2 1 AM CDT CBC W/O DIFFERENTIAL AM Draw 10/14/2024 4:13 AM CDT RENAL FUNCTION PANEL AM Draw 10/14/2024 4:13 AM CDT MAGNESIUM BLOOD Routine 10/14/2024 4:13 AM CDT LACTIC ACID BLOOD AM Draw 10/14/2024 4:1 3 AM CDT CBC W/O DIFFERENTIAL AM Draw 10/13/2024 3:38 AM CDT RENAL FUNCTION PANEL AM Draw 10/13/2024 3:38 AM CDT MAGNESIUM BLOOD Routine 10/13/2024 3:38 AM CDT LACTIC ACID BLOOD AM Draw 10/13/2024 3:3 8 AM CDT CBC W/O DIFFERENTIAL AM Draw 10/12/2024 4:51 AM CDT RENAL FUNCTION PANEL AM Draw 10/12/2024 4:51 AM CDT MAGNESIUM BLOOD Routine 10/12/2024 4:51 AM CDT LACTIC ACID BLOOD AM Draw 10/12/2024 4:5 1 AM CDT CARDIAC EKG ORDER 10/11/2024 5:5 3 PM CDT APHERESIS/TRANSFUSION ORDER 10/11/2024 5:52 PM CDT XR CHEST 1VW PORTABLE Routine 10/11/2024 2:10 PM CDT Acute hypoxic respiratory failure (HCC) CBC W/O DIFFERENTIAL AM Draw 10/11/2024 3:42 AM CDT RENAL FUNCTION PANEL AM Draw 10/11/2024 3:42 AM CDT MAGNESIUM BLOOD Routine 10/11/2024 3:42 AM CDT LACTIC ACID BLOOD AM Draw 10/11/2024 3:4 2 AM CDT TRIGLYCERIDES BLOOD AM Draw 10/11/2024 3 :42 AM CDT CBC W/O DIFFERENTIAL AM Draw 10/10/2024 3:33 AM CDT RENAL FUNCTION PANEL AM Draw 10/10/2024 3:33 AM CDT MAGNESIUM BLOOD Routine 10/10/2024 3:33 AM CDT LACTIC ACID BLOOD AM Draw 10/10/2024 3:3 3 AM CDT CBC W/O DIFFERENTIAL AM Draw 10/09/2024 3:50 AM CDT RENAL FUNCTION PANEL AM Draw 10/09/2024 3:50 AM CDT MAGNESIUM BLOOD Routine 10/09/2024 3:50 AM CDT LACTIC ACID BLOOD AM Draw 10/09/2024 3:5 0 AM CDT XR CHEST 1VW PORTABLE STAT 10/08/2024 9:57 PM CDT Acute hypoxic respiratory failure (HCC) XR ABDOMEN KUB STAT 10/08/2024 3:15 PM CDT Generalized abdominal pain COMPREHENSIVE METABOLIC PANEL AM Draw 10/08/2024 5:34 AM CDT CBC W AUTO DIFFERENTIAL AM Draw 10/08/2024 5:34 AM CDT COMPREHENSIVE METABOLIC PANEL AM Draw 10/07/2024 3:57 AM CDT CBC W AUTO DIFFERENTIAL AM Draw 10/07/2024 3:57 AM CDT GLUCOSE - POINT OF CARE Routine 10/06/2024 12:27 PM CDT GLUCOSE - POINT OF CARE Routine 10/06/2024 8:17 AM CDT MAGNESIUM BLOOD Routine 10/06/2024 4:19 AM CDT COMPREHENSIVE METABOLIC PANEL AM Draw 10/06/2024 4:19 AM CDT CBC W AUTO DIFFERENTIAL AM Draw 10/06/2024 4:19 AM CDT GLUCOSE - POINT OF CARE Routine 10/06/2024 4:18 AM CDT GLUCOSE - POINT OF CARE Routine 10/06/2024 12:23 AM CDT GLUCOSE - POINT OF CARE Routine 10/05/2024 7:30 PM CDT GLUCOSE - POINT OF CARE Routine 10/05/2024 5:47 AM CDT COMPREHENSIVE METABOLIC PANEL AM Draw 10/05/2024 4:29 AM CDT CBC W AUTO DIFFERENTIAL AM Draw 10/05/2024 4:29 AM CDT GLUCOSE - POINT OF CARE Routine 10/04/2024 11:[address] ANGIO CHEST PULM EMBOLISM STAT 10/04/2024 11:07 PM CDT Acute hypoxic respiratory failure (HCC) LACTIC ACID BLOOD REFLEX TO REPEAT Timed STAT 10/04/2024 10:38 PM CDT XR CHEST 1VW PORTABLE STAT 10/04/2024 8:13 PM CDT SOB (shortness of breath) B-TYPE NATRIURETIC PEPTIDE STAT 10/04/2024 8:13 PM CDT D-DIMER STAT 10/04/2024 8:13 PM CDT COMPREHENSIVE METABOLIC PANEL STAT 10/04/2024 8:13 PM CDT LACTIC ACID BLOOD REFLEX TO REPEAT STAT 10/04/2024 8:13 PM CDT CBC W AUTO DIFFERENTIAL STAT 10/04/2024 8:13 PM CDT BLOOD GASES LIZZIE Routine 10/04/2024 8:10 PM CDT EKG 12-LEAD STAT 10/04/2024 7:44 PM CDT SOB (shortness of breath) RENAL FUNCTION PANEL AM Draw 10/04/2024 3:58 AM CDT MAGNESIUM BLOOD Routine 10/04/2024 3:58 AM CDT TRIGLYCERIDES BLOOD AM Draw 10/04/2024 3 :58 AM CDT GLUCOSE - POINT OF CARE Routine 10/04/2024 12:13 AM CDT GLUCOSE - POINT OF CARE Routine 10/03/2024 8:40 AM CDT MAGNESIUM BLOOD Routine 10/03/2024 3:45 AM CDT COMPREHENSIVE METABOLIC PANEL Routine 10/03/2024 3:45 AM CDT PT-INR AM Draw 10/03/2024 3:45 AM CDT CBC W AUTO DIFFERENTIAL Routine 10/03/2024 3:45 AM CDT PHOSPHORUS BLOOD AM Draw 10/03/2024 3:45 AM CDT GLUCOSE - POINT OF CARE Routine 10/03/2024 3:40 AM CDT GLUCOSE - POINT OF CARE Routine 10/03/2024 12:30 AM CDT GLUCOSE - POINT OF CARE Routine 10/02/2024 9:05 PM CDT MAGNESIUM BLOOD Routine 10/02/2024 5:16 PM CDT COMPREHENSIVE METABOLIC PANEL Routine 10/02/2024 5:16 PM CDT CBC W AUTO DIFFERENTIAL Routine 10/02/2024 5:16 PM CDT GLUCOSE - POINT OF CARE Routine 10/02/2024 5:14 PM CDT GLUCOSE - POINT OF CARE Routine 10/02/2024 3:29 PM CDT GLUCOSE - POINT OF CARE Routine 10/02/2024 11:27 AM CDT GLUCOSE - POINT OF CARE Routine 10/02/2024 8:43 AM CDT EKG 12-LEAD Routine 10/02/2024 7:09 AM CDT Chronic systolic heart failure (HCC) TROPONIN-I HIGH SENSITIVE Timed 10/02/2024 6:18 AM CDT GLUCOSE - POINT OF CARE Routine 10/02/2024 4:04 AM CDT MAGNESIUM BLOOD Routine 10/02/2024 4:02 AM CDT COMPREHENSIVE METABOLIC PANEL Routine 10/02/2024 4:02 AM CDT PT-INR AM Draw 10/02/2024 4:02 AM CDT CBC W AUTO DIFFERENTIAL Routine 10/02/2024 4:02 AM CDT PHOSPHORUS BLOOD AM Draw 10/02/2024 4:02 AM CDT TROPONIN-I HIGH SENSITIVE Timed 10/01/2024 11:31 PM CDT GLUCOSE - POINT OF CARE Routine 10/01/2024 11:30 PM CDT GLUCOSE - POINT OF CARE Routine 10/01/2024 9:17 PM CDT TROPONIN-I HIGH SENSITIVE Timed 10/01/2024 5:48 PM CDT GLUCOSE - POINT OF CARE Routine 10/01/2024 4:10 PM CDT MAGNESIUM BLOOD Routine 10/01/2024 4:07 PM CDT COMPREHENSIVE METABOLIC PANEL Routine 10/01/2024 4:07 PM CDT CBC W AUTO DIFFERENTIAL Routine 10/01/2024 4:07 PM CDT TROPONIN-I HIGH SENSITIVE Timed 10/01/2024 12:46 PM CDT GLUCOSE - POINT OF CARE Routine 10/01/2024 12:43 PM CDT EKG 12-LEAD Routine 10/01/2024 12:06 PM CDT Malnutrition, unspecified type (HCC) GLUCOSE - POINT OF CARE Routine 10/01/2024 8:44 AM CDT MAGNESIUM BLOOD Routine 10/01/2024 4:16 AM CDT COMPREHENSIVE METABOLIC PANEL Routine 10/01/2024 4:16 AM CDT PT-INR AM Draw 10/01/2024 4:16 AM CDT CBC W AUTO DIFFERENTIAL Routine 10/01/2024 4:16 AM CDT PHOSPHORUS BLOOD AM Draw 10/01/2024 4:16 AM CDT GLUCOSE - POINT OF CARE Routine 10/01/2024 4:14 AM CDT GLUCOSE - POINT OF CARE Routine 10/01/2024 12:08 AM CDT GLUCOSE - POINT OF CARE Routine 09/30/2024 8:52 PM CDT EKG 12-LEAD Routine 09/30/2024 5:11 PM CDT Malnutrition, unspecified type (HCC) MAGNESIUM BLOOD Routine 09/30/2024 4:47 PM CDT COMPREHENSIVE METABOLIC PANEL Routine 09/30/2024 4:47 PM CDT CBC W AUTO DIFFERENTIAL Routine 09/30/2024 4:47 PM CDT GLUCOSE - POINT OF CARE Routine 09/30/2024 4:[address] CHEST ABDOMEN PELVIS W CONT STAT 09/30/2024 1:49 PM CDT Hypotension, unspecified hypotension type GLUCOSE - POINT OF CARE Routine 09/30/2024 12:19 PM CDT RENAL FUNCTION PANEL STAT 09/30/2024 10:45 AM CDT CBC W/O DIFFERENTIAL STAT 09/30/2024 10:45 AM CDT GLUCOSE - POINT OF CARE Routine 09/30/2024 9:16 AM CDT MAGNESIUM BLOOD Routine 09/30/2024 4:27 AM CDT COMPREHENSIVE METABOLIC PANEL Routine 09/30/2024 4:27 AM CDT PT-INR AM Draw 09/30/2024 4:27 AM CDT CBC W AUTO DIFFERENTIAL Routine 09/30/2024 4:27 AM CDT PHOSPHORUS BLOOD AM Draw 09/30/2024 4:27 AM CDT GLUCOSE - POINT OF CARE Routine 09/30/2024 4:25 AM CDT GLUCOSE - POINT OF CARE Routine 09/30/2024 12:13 AM CDT GLUCOSE - POINT OF CARE Routine 09/29/2024 8:02 PM CDT GLUCOSE - POINT OF CARE Routine 09/29/2024 4:59 PM CDT MAGNESIUM BLOOD Routine 09/29/2024 4:59 PM CDT COMPREHENSIVE METABOLIC PANEL Routine 09/29/2024 4:59 PM CDT CBC W AUTO DIFFERENTIAL Routine 09/29/2024 4:59 PM CDT GLUCOSE - POINT OF CARE Routine 09/29/2024 12:44 PM CDT GLUCOSE - POINT OF CARE Routine 09/29/2024 8:40 AM CDT MAGNESIUM BLOOD Routine 09/29/2024 3:50 AM CDT COMPREHENSIVE METABOLIC PANEL Routine 09/29/2024 3:50 AM CDT TRIGLYCERIDES BLOOD AM Draw 09/29/2024 3 :50 AM CDT CBC W AUTO DIFFERENTIAL Routine 09/29/2024 3:50 AM CDT PHOSPHORUS BLOOD AM Draw 09/29/2024 3:50 AM CDT GLUCOSE - POINT OF CARE Routine 09/29/2024 3:49 AM CDT GLUCOSE - POINT OF CARE Routine 09/29/2024 12:14 AM CDT GLUCOSE - POINT OF CARE Routine 09/28/2024 7:53 PM CDT GLUCOSE - POINT OF CARE Routine 09/28/2024 4:17 PM CDT MAGNESIUM BLOOD Routine 09/28/2024 4:17 PM CDT COMPREHENSIVE METABOLIC PANEL Routine 09/28/2024 4:17 PM CDT CBC W AUTO DIFFERENTIAL Routine 09/28/2024 4:17 PM CDT ECHO COMPLETE Routine 09/28/2024 3:25 PM CDT SOB (shortness of breath) GLUCOSE - POINT OF CARE Routine 09/28/2024 12:14 PM CDT GLUCOSE - POINT OF CARE Routine 09/28/2024 7:52 AM CDT MAGNESIUM BLOOD Routine 09/28/2024 3:51 AM CDT COMPREHENSIVE METABOLIC PANEL Routine 09/28/2024 3:51 AM CDT HEMOGLOBIN A1C Routine 09/28/2024 3:51 AM CDT CBC W AUTO DIFFERENTIAL Routine 09/28/2024 3:51 AM CDT PHOSPHORUS BLOOD AM Draw 09/28/2024 3:51 AM CDT GLUCOSE - POINT OF CARE Routine 09/28/2024 3:50 AM CDT GLUCOSE - POINT OF CARE Routine 09/28/2024 12:14 AM CDT GLUCOSE - POINT OF CARE Routine 09/27/2024 8:10 PM CDT MAGNESIUM BLOOD Routine 09/27/2024 3:49 PM CDT COMPREHENSIVE METABOLIC PANEL Routine 09/27/2024 3:49 PM CDT CBC W AUTO DIFFERENTIAL Routine 09/27/2024 3:49 PM CDT GLUCOSE - POINT OF CARE Routine 09/27/2024 3:46 PM CDT GLUCOSE - POINT OF CARE Routine 09/27/2024 12:00 PM CDT BLOOD GASES ARTERIAL STAT 09/27/2024 9:44 AM CDT Malnutrition, unspecified type (HCC) XR CHEST 1VW PORTABLE STAT 09/27/2024 9:03 AM CDT SOB (shortness of breath) CULTURE SPUTUM+GRAM STAIN Routine 09/27/2024 8:38 AM CDT BLOOD GASES ARTERIAL STAT 09/27/2024 8:11 AM CDT MAGNESIUM BLOOD Routine 09/27/2024 4:08 AM CDT COMPREHENSIVE METABOLIC PANEL Routine 09/27/2024 4:08 AM CDT CBC W AUTO DIFFERENTIAL Routine 09/27/2024 4:08 AM CDT PHOSPHORUS BLOOD AM Draw 09/27/2024 4:08 AM CDT TRIGLYCERIDES BLOOD AM Draw 09/27/2024 4 :08 AM CDT B-TYPE NATRIURETIC PEPTIDE AM Draw 09/27/2024 4:08 AM CDT TRANSFUSE RED BLOOD CELL LEUKOREDUCED UNIT(S) Routine 09/26/2024 5:52 PM CDT TYPE + SCREEN PANEL Routine 09/26/2024 4 :42 PM CDT PREPARE RBC LEUKOREDUCED UNIT Routine 09/26/2024 4:42 PM CDT BLOOD TYPE VERIFICATION Routine 09/26/2024 4:19 PM CDT MAGNESIUM BLOOD Routine 09/26/2024 4:19 PM CDT COMPREHENSIVE METABOLIC PANEL Routine 09/26/2024 4:19 PM CDT CBC W AUTO DIFFERENTIAL Routine 09/26/2024 4:19 PM CDT MAGNESIUM BLOOD Routine 09/26/2024 5:37 AM CDT COMPREHENSIVE METABOLIC PANEL Routine 09/26/2024 5:37 AM CDT PHOSPHORUS BLOOD AM Draw 09/26/2024 5:37 AM CDT CBC W AUTO DIFFERENTIAL AM Draw 09/26/2024 5:37 AM CDT B-TYPE NATRIURETIC PEPTIDE AM Draw 09/26/2024 5:37 AM CDT MAGNESIUM BLOOD Routine 09/25/2024 5:03 PM CDT COMPREHENSIVE METABOLIC PANEL Routine 09/25/2024 5:03 PM CDT EXTUBATION Routine 09/25/2024 4:46 PM CDT PHOSPHORUS BLOOD Routine 09/25/2024 3:58 AM CDT DIFFERENTIAL MANUAL AM Draw 09/25/2024 3 :58 AM CDT MAGNESIUM BLOOD Routine 09/25/2024 3:58 AM CDT COMPREHENSIVE METABOLIC PANEL Routine 09/25/2024 3:58 AM CDT PT-INR AM Draw 09/25/2024 3:58 AM CDT CBC W AUTO DIFFERENTIAL AM Draw 09/25/2024 3:58 AM CDT B-TYPE NATRIURETIC PEPTIDE AM Draw 09/25/2024 3:58 AM CDT COMPREHENSIVE METABOLIC PANEL STAT 09/24/2024 9:21 PM CDT LACTIC ACID BLOOD REFLEX TO REPEAT Timed 09/24/2024 4:50 PM CDT MAGNESIUM BLOOD Routine 09/24/2024 4:45 PM CDT COMPREHENSIVE METABOLIC PANEL Routine 09/24/2024 4:45 PM CDT CULTURE FUNGUS OTHER+FUNGUS SMEAR STAT 09/24/2024 3:32 PM CDT Diagnosis unknown CULTURE WOUND+GRAM STAIN STAT 09/24/2024 3:32 PM CDT Diagnosis unknown CULTURE ANAEROBE STAT 09/24/2024 3:32 PM CDT Diagnosis unknown NH EXPLORATORY OF ABDOMEN 09/24/2024 2:35 PM CDT XR CHEST 1VW PORTABLE STAT 09/24/2024 2:33 PM CDT Malnutrition, unspecified type (HCC) BLOOD GASES+LYTES ARTERIAL Routine 09/24/2024 2:17 PM CDT Malnutrition, unspecified type (HCC) PT-INR MILANA 09/24/2024 1:59 PM CDT DIFFERENTIAL MANUAL STAT 09/24/2024 1 :11 PM CDT RENAL FUNCTION PANEL STAT 09/24/2024 1:11 PM CDT CBC W AUTO DIFFERENTIAL STAT 09/24/2024 1:11 PM CDT SLIDE SCAN HEMATOLOGY AM Draw 09/24/2024 3:19 AM CDT CBC W AUTO DIFFERENTIAL AM Draw 09/24/2024 3:19 AM CDT RENAL FUNCTION PANEL AM Draw 09/24/2024 3:19 AM CDT B-TYPE NATRIURETIC PEPTIDE AM Draw 09/24/2024 3:19 AM CDT PHOSPHORUS BLOOD Routine 09/23/2024 10:2 5 AM CDT MAGNESIUM BLOOD Routine 09/23/2024 10:25 AM CDT BASIC METABOLIC PANEL (CALCIUM TOTAL) AM Draw 09/23/2024 10:25 AM CDT OT EVAL AND TREAT Routine 09/23/2024 6:4 9 AM CDT PT EVAL AND TREAT Routine 09/23/2024 6:4 9 AM CDT DIFFERENTIAL MANUAL STAT 09/22/2024 9 :16 PM CDT B-TYPE NATRIURETIC PEPTIDE STAT 09/22/2024 9:16 PM CDT PT-INR STAT 09/22/2024 9:16 PM CDT LACTIC ACID BLOOD STAT 09/22/2024 9:1 6 PM CDT COMPREHENSIVE METABOLIC PANEL STAT 09/22/2024 9:16 PM CDT CBC W AUTO DIFFERENTIAL STAT 09/22/2024 9:[address] ABDOMEN PELVIS W CONTRAST STAT 09/07/2024 3:55 PM CDT Generalized abdominal pain MAGNESIUM BLOOD STAT 09/07/2024 12:58 PM CDT LIPASE BLOOD STAT 09/07/2024 12:58 PM CDT COMPREHENSIVE METABOLIC PANEL STAT 09/07/2024 12:58 PM CDT CBC W AUTO DIFFERENTIAL STAT 09/07/2024 12:58 PM CDT HEPATITIS C GENOTYPE Routine 05/19/2018 2:16 PM [employer] Hepatitis C antibody positive in blood from Last 3 Months or Most Recently Relevant to Health Maintenance Results * CARDIAC RHYTHM STRIP ORDER (10/19/2024 10:39 PM CDT) Narrative 10/19/2024 10:39 PM CDT Ordered by an unspecified provider. us Scanned Document CARDIAC SERVICES ORDERABLES Guilherme maurice Result - Final * (ABNORMAL) CBC W/O DIFFERENTIAL (10/17/2024 4:57 AM CDT) Only the most recent of10 resultswithin the time period is included. WBC 7.0 4.0 - 10.7 x10E9/L 10/17/2024 5:10 AM CDT [facility] RBC Count 3.21(L) 4.30 - 5.80 x10E12/L 10/17/2024 5:10 AM CDT [facility] Hemoglobin 8.8(L) 13.3 - 17.5 g/dL 10/17/2024 5:10 AM CDT [facility] Hematocrit 28.0(L) 38.7 - 51.1 % 10/17/2024 5:10 AM CDT [facility] MCV 87.2 80.0 - 98.0 fL 10/17/2024 5:10 AM CDT [facility] MCH 27.4 26.7 - 33.6 pg 10/17/2024 5:10 AM CDT [facility] MCHC 31.4(L) 31.7 - 36.3 g/dL 10/17/2024 5:10 AM CDT [facility] RDW-CV 15.9(H) 11.3 - 14.8 % 10/17/2024 5:10 AM CDT [facility] Platelet Count 505(H) 150 - 420 x10E9/L 10/17/2024 5:10 AM CDT [facility] MPV 9.8 7.8 - 11.4 fL 10/17/2024 5:10 AM CDT [facility] Blood BLOOD SPECIMEN / Unknown Venipuncture / Unknown 10/17/2024 4:57 AM CDT 10/17/2024 5:01 AM CDT Raj Sy MD LAB - HEMATOLOGY ORDERABLES Final Result [facility] [id number] [place] [address] * (ABNORMAL) RENAL FUNCTION PANEL (10/17/2024 4:57 AM CDT) Only the most recent of13 resultswithin the time period is included. Glucose 101(H) 70 - 99 mg/dL 10/17/2024 5:25 AM CDT [facility] Sodium 136 136 - 145 mmol/L 10/17/2024 5:25 AM CDT [facility] Potassium 4.2 3.5 - 5.1 mmol/L 10/17/2024 5:25 AM CDT [facility] Chloride 101 98 - 107 mmol/L 10/17/2024 5:25 AM CDT [facility] CO2 27 22 - 29 mmol/L 10/17/2024 5:25 AM CDT [facility] Calcium 9.0 8.4 - 10.4 mg/dL 10/17/2024 5:25 AM CDT [facility] Anion Gap 8 6 - 16 mmol/L 10/17/2024 5:25 AM CDT [facility] BUN 26 7 - 26 mg/dL 10/17/2024 5:25 AM CDT [facility] Creatinine 0.76 0.72 - 1.25 mg/dL 10/17/2024 5:25 AM CDT [facility] Albumin 3.1 3.1 - 4.5 gm/dL 10/17/2024 5:25 AM CDT [facility] Phosphorus 2.6 2.5 - 4.5 mg/dL 10/17/2024 5:25 AM CDT [facility] eGFR by CKD-EPI >90 >=90 mL/min/1.7 3 m2 10/17/2024 5:25 AM CDT [facility] Blood BLOOD SPECIMEN / Unknown Venipuncture / Unknown 10/17/2024 4:57 AM CDT 10/17/2024 5:01 AM CDT Raj Sy MD LAB - CHEMISTRY O RDERABLES Final Result [facility] [address] [place] [address] * MAGNESIUM BLOOD (10/17/2024 4:57 AM CDT) Only the most recent of31 resultswithin the time period is included. Magnesium 2.1 1.6 - 2.6 mg/dL 10/17/2024 5:25 AM CDT [facility] Blood BLOOD SPECIMEN / Unknown Venipuncture / Unknown 10/17/2024 4:57 AM CDT 10/17/2024 5:01 AM CDT us Raj Sy MD LAB - CHEMISTRY O RDERABLES Final Result Performing Organization Address City/[facility]/ZIP Co de Phone Number [facility] [address] [place] [address] * LACTIC ACID BLOOD (10/17/2024 4:57 AM CDT) Only the most recent of10 resultswithin the time period is included. Lactic Acid 0.6 <=2 mmol/L 10/17/2024 5:23 AM CDT [facility] Blood BLOOD SPECIMEN / Unknown Venipuncture / Unknown 10/17/2024 4:57 AM CDT 10/17/2024 5:01 AM CDT us Raj Sy MD LAB - CHEMISTRY O RDERABLES Final Result Performing Organization Address [facility] Co de Phone Number [facility] [address] [place] [address] * CARDIAC EKG ORDER (10/11/2024 5:53 PM CDT) Narrative 10/11/2024 5:53 PM CDT Ordered by an unspecified provider. us Scanned Document CARDIAC SERVICES ORDERABLES Fin al Result * APHERESIS/TRANSFUSION ORDER (10/11/2024 5:52 PM CDT) Narrative 10/11/2024 5:52 PM CDT Ordered by an unspecified provider. us Scanned Document NURSING - VITAL SIGNS AND ASSES SMENT Final Result * XR Chest 1Vw Portable (10/11/2024 2:10 PM CDT) Only the most recent of5 resultswithin the time period is included. Anatomical Region Laterality Modality Chest Computed Radiogr aphy 10/11/2024 5:42 PM CDT Narrative 10/11/2024 5:42 PM CDT PROCEDURE: XR CHEST 1VW PORTABLE DATE/TIME OF EXAM: 10/11/2024 2:10 PM CLINICAL INFORMATION: None relevant/not provided if blank. Indication: J96.01: Acute hypoxic respiratory failure (HCC) Acute shortness of breath COMPARISON: 10/08/2024 FINDINGS: Right upper extremity PICC terminates cavoatrial junction. Stable chronic granulomatous disease. Interval resolution of bilateral pulmonary infiltrates. Heart size normal. No pneumothorax or pleural effusion. Chronic arthritic changes right shoulder. > Interpreting Provider: Piyush Reaves MD on 10/11/2024 5:42 PM Procedure Note Piyush Reaves MD - 10/11/2024 PROCEDURE: XR CHEST 1VW PORTABLE DATE/TIME OF EXAM: 10/11/2024 2:10 PM CLINICAL INFORMATION: None relevant/not provided if blank. Indication: J96.01: Acute hypoxic respiratory failure (HCC) Acute shortness of breath COMPARISON: 10/08/2024 FINDINGS: Right upper extremity PICC terminates cavoatrial junction. Stablechronic granulomatous disease. Interval resolution of bilateral pulmonary infiltrates. Heart size normal. No pneumothorax or pleural effusion. Chronic arthritic changes right shoulder. > Interpreting Provider: Piyush Reaves MD on 10/11/2024 5:42 PM Abhijit Galeana MD DIAGNOSTIC IMAGING ORDERABLES F inal Result * (ABNORMAL) TRIGLYCERIDES BLOOD (10/11/2024 3:42 AM CDT) Only the most recent of4 resultswithin the time period is included. Triglycerides 186(H) <150 mg/dL 10/11/2024 4:19 AM CDT [facility] Blood BLOOD SPECIMEN / Unknown Venipuncture / Unknown 10/11/2024 3:42 AM CDT 10/11/2024 3:47 AM CDT Lynn Brenner MD LAB - CHEMISTRY ORDERABLES Amanda l Result [facility] [address] [place] [address] * XR Abdomen Kub (10/08/2024 3:15 PM CDT) Anatomical Region Laterality Modality Abdomen Computed Radiogr aphy 10/08/2024 3:17 PM CDT Narrative 10/08/2024 3:19 PM CDT EXAM: XR ABDOMEN KUB INDICATION: R10.84: Generalized abdominal pain COMPARISON: none available FINDINGS: There is a nonspecific bowel gas pattern with no evidence of ileus or obstruction. Gastrostomy tube ends with its tip at the expected location of the gastric antrum. There is no free air. Calcified granuloma are noted in the liver and spleen. > Interpreting Provider: Jeremy Tabor JR, MD on 10/08/2024 3:19 PM Procedure Note Jeremy Tabor MD - 10/08/2024 EXAM: XR ABDOMEN KUB INDICATION: R10.84: Generalized abdominal pain COMPARISON: none available FINDINGS: There is a nonspecific bowel gas pattern with no evidence of ileus or obstruction. Gastrostomy tube ends with its tip at the expected locationof the gastric antrum. There is no free air. Calcified granuloma are notedin the liver and spleen. > Interpreting Provider: Jeremy Tabor JR, MD on 10/08/2024 3:19 PM Jesenia Perla MD DIAGNOSTIC IMAGING ORDER BREONNA Final Result * (ABNORMAL) CBC W AUTO DIFFERENTIAL (10/08/2024 5:34 AM CDT) Only the most recent of25 resultswithin the time period is included. WBC 9.4 4.0 - 10.7 x10E9/L 10/08/2024 6:00 AM CDT [facility] RBC Count 2.89(L) 4.30 - 5.80 x10E12/L 10/08/2024 6:00 AM CDT [facility] Hemoglobin 7.8(L) 13.3 - 17.5 g/dL 10/08/2024 6:00 AM CDT [facility] Hematocrit 24.9(L) 38.7 - 51.1 % 10/08/2024 6:00 AM CDT [facility] MCV 86.2 80.0 - 98.0 fL 10/08/2024 6:00 AM CDT [facility] MCH 27.0 26.7 - 33.6 pg 10/08/2024 6:00 AM CDT [facility] MCHC 31.3(L) 31.7 - 36.3 g/dL 10/08/2024 6:[address] [facility] RDW-CV 15.5(H) 11.3 - 14.8 % 10/08/2024 6:[address] [facility] Platelet Count 662(H) 150 - 420 x10E9/L 10/08/2024 6:[address] [facility] MPV 10.3 7.8 - 11.4 fL 10/08/2024 6:[address] [facility] Neutrophil % 78.7(H) 41.0 - 74.0 % 10/08/2024 6:[address] [facility] Lymphocyte % 8.6(L) 17.0 - 47.0 % 10/08/2024 6:[address] [facility] Monocyte % 9.8 3.0 - 11.0 % 10/08/2024 6:[address] [facility] Eosinophil % 1.1 0.0 - 7.0 % 10/08/2024 6:[address] [facility] Basophil % 1.2 0.0 - 1.6 % 10/08/2024 6:[address] [facility] Immature Granulocytes % 0.6 0.0 - 1.0 % 10/08/2024 6:[address] [facility] Neutrophil Absolute 7.40 1.60 - 7.50 x10E9/L 10/08/2024 6:[address] [facility] Lymphocyte Absolute 0.81(L) 1.00 - 4.40 x10E9/L 10/08/2024 6:[address] [facility] Monocyte Absolute 0.92 0.15 - 1.00 x10E9/L 10/08/2024 6:[address] [facility] Eosinophil Absolute 0.10 0.00 - 0.60 x10E9/L 10/08/2024 6:[address] [facility] Basophil Absolute 0.11 0.00 - 0.13 x10E9/L 10/08/2024 6:[address] [facility] Blood BLOOD SPECIMEN / Unknown Venipuncture / Unknown 10/08/2024 5:34 AM CDT 10/08/2024 5:46 AM CDT us Humza Lopez MD LAB - HEMATOLOGY ORDER BREONNA Final Result [facility] [address] [place] [address] * (ABNORMAL) COMPREHENSIVE METABOLIC PANEL (10/08/2024 5:34 AM CDT) Only the most recent of26 resultswithin the time period is included. [facility] Signature Glucose 123(H) 70 - 99 mg/dL 10/08/2024 6:14 AM CDT [facility] Sodium 137 136 - 145 mmol/L 10/08/2024 6:14 AM CDT [facility] Potassium 4.0 3.5 - 5.1 mmol/L 10/08/2024 6:14 AM CDT [facility] Chloride 103 98 - 107 mmol/L 10/08/2024 6:14 AM CDT [facility] CO2 23 22 - 29 mmol/L 10/08/2024 6:14 AM CDT [facility] Calcium 8.6 8.4 - 10.4 mg/dL 10/08/2024 6:14 AM CDT [facility] Anion Gap 11 6 - 16 mmol/L 10/08/2024 6:14 AM CDT [facility] BUN 15 7 - 26 mg/dL 10/08/2024 6:14 AM CDT [facility] Creatinine 0.68(L) 0.72 - 1.25 mg/dL 10/08/2024 6:14 AM CDT [facility] Alkaline Phosphatase 98 40 - 150 U/L 10/08/2024 6:14 AM CDT [facility] ALT 28 6 - 57 U/L 10/08/2024 6:14 AM CDT [facility] AST 43 10 - 48 U/L 10/08/2024 6:14 AM CDT [facility] Protein Total 6.2(L) 6.4 - 8.3 gm/dL 10/08/2024 6:14 AM CDT [facility] Albumin 2.7(L) 3.1 - 4.5 gm/dL 10/08/2024 6:14 AM CDT [facility] Bilirubin Total 0.5 0.2 - 1.2 mg/dL 10/08/2024 6:14 AM CDT [facility] eGFR by CKD-EPI >90 >=90 mL/min/1.7 3 m2 10/08/2024 6:14 AM CDT [facility] Blood BLOOD SPECIMEN / Unknown Venipuncture / Unknown 10/08/2024 5:34 AM CDT 10/08/2024 5:46 AM CDT Humza Lopez MD LAB - CHEMISTRY ORDERA BLES Final Result Performing Organization Address City/[facility]/ZIP Co de Phone Number [facility] [address] [place] [address] * (ABNORMAL) GLUCOSE - POINT OF CARE (10/06/2024 12:27 PM CDT) Only the most recent of45 resultswithin the time period is included. [facility] Glucose WB/POC 108(H) 70 - 99 mg/dL 10/06/2024 12:29 PM CDT [facility] Specimen Type Arterial/C apillary 10/06/2024 12:29 PM CDT [facility] Blood BLOOD SPECIMEN / Unknown 10/06/2024 12:27 PM CDT 10/06/2024 12:29 PM CDT Jesenia Perla MD LAB - POINT OF CARE JOSE ANGEL GIANG Final Result Performing Organization Address [facility] Co de Phone Number [facility] [address] [place] [address] * CT Angio Chest Pulm Embolism (10/04/2024 11:07 PM CDT) Anatomical Region Laterality Modality Chest Computed Tomogra phy 10/05/2024 6:45 AM CDT Impressions 10/05/2024 7:31 AM CDT IMPRESSION: 1. No CT evidence of pulmonary embolism. 2. Small bilateral pleural effusions, right greater than left. 3. Bilateral infiltrates, in the dependent portions of the upper and lower lobes, right greater than left. 4. Small amount of free peritoneal air, possibly related to the prior surgery on 09/24/2024. If there is concern of visceral perforation, abdominal CT examination, preferably with enteral contrast, would be suggested. > Interpreting Provider: Rios Toth MD on 10/05/2024 7:31 AM Narrative 10/05/2024 7:31 AM CDT PROCEDURE: CT ANGIO CHEST PULM EMBOLISM, DATE/TIME OF EXAM: 10/04/2024 11:28 PM, LOCATION [facility] INDICATION: J96.01: Acute hypoxic respiratory failure (HCC) ADDITIONAL CLINICAL INFORMATION: Ordering Provider Reason For Exam: Technologist Note: Additional: COMPARISON: None. 09/30/2024 CT PULMONARY ANGIOGRAPHY - PULMONARY EMBOLISM PROTOCOL WITH MIP RECONSTRUCTIONS IN AXIAL, CORONAL AND SAGITTAL INDICATION: 9 year old Male with recent small bowel obstruction, post exploratory laparotomy on 09/17/2024, small bowel resection, post peritoneal washout of the his since and hernia repair, NG tube placement on 09/24/2024.. TECHNIQUE: Axial images of the chest were made during infusion of 80 cc of Isovue-370, intravenously, as per our protocol for pulmonary embolism assessment. 3-D reconstruction MIP images were made at the workstation. One or more of the following CT dose reduction techniques were utilized: - Automated exposure control (AEC) - Adjustment of mA and/or kV, according to the patient's size - use of iterative reconstruction technique - CT scan done according to ALARA or ALARA/IMAGE GENTLY FINDINGS: Comparison is made to the prior CT examination of 09/30/2024. There is good opacification of the pulmonary arteries, with the pulmonary artery outflow tract measuring 415 Hounsfield units. I do not see any intra-arterial filling defects to suggest pulmonary emboli. I do not see any right ventricular dilatation or septal bowing. There is no reflux of contrast into the inferior vena cava. . There are small bilateral pleural effusions, right greater than left. In addition to infiltrate/atelectasis in the dependent portions of the right upper, left upper and both lower lobes (greater on the right), there is some atelectasis/infiltrate in the dependent upper lobe/apical regions. I do not see a discrete mass. There is no pneumothorax. There is no mediastinal adenopathy. Portions of the abdomen including the study show a small amount of peritoneal fluid about the convexity the liver. There is a small amount of free peritoneal air, slightly less than that seen on the prior study of 09/30/2024. Procedure Note Rios Toth MD - 10/05/2024 PROCEDURE: CT ANGIO CHEST PULM EMBOLISM, DATE/TIME OF EXAM: 10/04/2024 11:28 PM, LOCATION [facility] INDICATION: J96.01: Acute hypoxic respiratory failure (HCC) ADDITIONAL CLINICAL INFORMATION: Ordering Provider Reason For Exam: Technologist Note: Additional: COMPARISON: None. 09/30/2024 CT PULMONARY ANGIOGRAPHY - PULMONARY EMBOLISM PROTOCOL WITH MIP RECONSTRUCTIONS IN AXIAL, CORONAL AND SAGITTAL INDICATION: 9 year old Male with recent small bowel obstruction, post exploratory laparotomy on 09/17/2024, small bowel resection, postperitoneal washout of the his since and hernia repair, NG tube placement on 09/24/2024.. TECHNIQUE: Axial images of the chest were made during infusion of 80 ccof Isovue-370, intravenously, as per our protocol for pulmonary embolism assessment. 3-D reconstruction MIP images were made at the workstation. One or more of the following CT dose reduction techniques were utilized: - Automated exposure control (AEC) - Adjustment of mA and/or kV, according to the patient's size - use of iterative reconstruction technique - CT scan done according to ALARA or ALARA/IMAGE GENTLY FINDINGS: Comparison is made to the prior CT examination of 09/30/2024. There is good opacification of the pulmonary arteries, with thepulmonary artery outflow tract measuring 415 Hounsfield units. I do not see any intra-arterial filling defects to suggest pulmonary emboli. I do not see any right ventricular dilatation or septal bowing. There is no reflux of contrast into the inferior vena cava. . There are small bilateral pleural effusions, right greater than left.In addition to infiltrate/atelectasis in the dependent portions of theright upper, left upper and both lower lobes (greater on the right), there is some atelectasis/infiltrate in the dependent upper lobe/apical regions.I do not see a discrete mass. There is no pneumothorax. There is no mediastinal adenopathy. Portions of the abdomen including the study show a small amount of peritoneal fluid about the convexity the liver. There is a small amountof free peritoneal air, slightly less than that seen on the prior study of 09/30/2024. IMPRESSION: 1. No CT evidence of pulmonary embolism. 2. Small bilateral pleural effusions, right greater than left. 3. Bilateral infiltrates, in the dependent portions of the upper andlower lobes, right greater than left. 4. Small amount of free peritoneal air, possibly related to the prior surgery on 09/24/2024. If there is concern of visceral perforation, abdominal CT examination, preferably with enteral contrast, would be suggested. > Interpreting Provider: Rios Toth MD on 10/05/2024 7:31 AM Humza Lopez MD CT ORDERABLES Final Result * LACTIC ACID BLOOD REFLEX TO REPEAT (10/04/2024 10:38 PM CDT) Only the most recent of3 resultswithin the time period is included. Pathologist [facility] Lactic Acid 1.0 <=2 mmol/L 10/04/2024 11:00 PM CDT [facility] Blood BLOOD SPECIMEN / Unknown Venipuncture / Unknown 10/04/2024 10:38 PM CDT 10/04/2024 10:41 PM CDT Humza Lopez MD LAB - CHEMISTRY ORDERA BLES Final Result [facility] [address] [place] [address] * (ABNORMAL) D-DIMER (10/04/2024 8:13 PM CDT) Pathologist [facility] D-Dimer >20.00(H) 0.27 - 0.50 ug/mL FEU 10/04/2024 8:56 PM CDT [facility] Blood BLOOD SPECIMEN / Unknown Venipuncture / Unknown 10/04/2024 8:13 PM CDT 10/04/2024 8:20 PM CDT Narrative [facility] - 10/04/2024 8:56 PM CDT In the absence of clinical symptoms, a value less than or equal to 0.5 mcg/mL FEU significantly decreases the probability of PE/DVT (negative predictive value >95%). 1 mcg/ml FEU = 1 Fibrinogen Equivalent Unit (approximates 0.5 mcg/mL of D- dimer). us Humza Lopez MD LAB - COAGULATION ORDJanis GIANG Final Result Performing Organization Address [facility] Co de Phone Number [facility] [address] [place] [address] * (ABNORMAL) B-TYPE NATRIURETIC PEPTIDE (10/04/2024 8:13 PM CDT) Only the most recent of6 resultswithin the time period is included. Pathologist [facility] BNP 4,026(H) <=100 pg/mL 10/04/2024 10:20 PM CDT [facility] Blood BLOOD SPECIMEN / Unknown Venipuncture / Unknown 10/04/2024 8:13 PM CDT 10/04/2024 9:58 PM CDT us Humza Lopez MD LAB - CHEMISTRY ORDERA BLES Final Result Performing Organization Address [facility] Co de Phone Number [facility] [address] [place] [address] * (ABNORMAL) BLOOD GASES LIZZIE (10/04/2024 8:10 PM CDT) Pathologist [facility] pH Venous 7.36 7.32 - 7.42 pH 10/04/2024 8:18 PM CDT [facility] pO2 Venous 46(H) 35 - 40 mmHg 10/04/2024 8:18 PM CDT [facility] pCO2 Venous 42 40 - 50 mmHg 10/04/2024 8:18 PM CDT [facility] HCO3 Venous 23.7(L) 24 - 26 mmol/L 10/04/2024 8:18 PM CDT [facility] Base Excess Venous -1.8 -2.0 - 2.0 mmol/L 10/04/2024 8:18 PM CDT [facility] O2 Saturation Venous 79 >=70 % 10/04/2024 8:18 PM CDT [facility] Alli's Test NA 10/04/2024 8:18 PM CDT [facility] Mode Bipap 10/04/2024 8:18 PM CDT [facility] FI O2 70.0 % 10/04/2024 8:18 PM CDT [facility] Blood BLOOD SPECIMEN / Unknown 10/04/2024 8:10 PM CDT 10/04/2024 8:10 PM CDT Humza Lopez MD LAB - BLOOD GASES ORDE RABLES Final Result [facility] [address] [phone] * EKG 12-LEAD (10/04/2024 7:44 PM CDT) Only the most recent of4 resultswithin the time period is included. Ventricular Rate 137 BPM [facility] QRS Duration ms 158 ms [facility] Q-T Interval ms 388 ms [facility] QTC Calculation (Bezet) 585 ms [facility] Calculated R [place] -16 degrees [facility] Calculated T [place] 119 degrees [facility] Interpretation EKG Wide QRS tachycardia Left bundle branch block Abnormal ECG When compared with ECG of 02-OCT-2024 07:09, Wide QRS tachycardia has replaced Sinus rhythm Confirmed by MICHELLE MACDONALD, RADHA ([id number]) on 10/05/2024 8:50:42 AM [facility] 10/04/2024 7:44 PM CDT 10/05/2024 8:50 AM CDT us Humza Lopez MD ECG ORDERABLES Edited Result - Final [facility]USE * PT-INR (10/03/2024 3:45 AM CDT) Only the most recent of7 resultswithin the time period is included. PT 14.3 12.1 - 14.8 sec 10/03/2024 4:02 AM CDT [facility] INR 1.1 0.9 - 1.1 10/03/2024 4:02 AM CDT [facility] Blood BLOOD SPECIMEN / Unknown Venipuncture / Unknown 10/03/2024 3:45 AM CDT 10/03/2024 3:51 AM CDT Narrative [facility] - 10/03/2024 4:02 AM CDT Conventional Warfarin Anticoagulant Therapy: INR Reference Range: 2.0-3.0 Intensive Warfarin Anticoagulant Therapy: INR Reference Range: 2.5-3.5 Raj Sy MD LAB - COAGULATION ORDERABLES Final Result Performing Organization Address [facility] de Phone Number [facility] [address] [place] [address] * PHOSPHORUS BLOOD (10/03/2024 3:45 AM CDT) Only the most recent of10 resultswithin the time period is included. Pathologist [facility] Phosphorus 3.2 2.5 - 4.5 mg/dL 10/03/2024 4:16 AM CDT [facility] Blood BLOOD SPECIMEN / Unknown Venipuncture / Unknown 10/03/2024 3:45 AM CDT 10/03/2024 3:51 AM CDT Lynn Brenner MD LAB - CHEMISTRY ORDERABLES Amanda l Result Performing Organization Address [facility] de Phone Number [facility] [address] [place] [address] * (ABNORMAL) TROPONIN-I HIGH SENSITIVE (10/02/2024 6:18 AM CDT) Only the most recent of4 resultswithin the time period is included. Pathologist [facility] Troponin I High Sensitive 203(H) <=35 ng/L 10/02/2024 6:44 AM CDT [facility] Blood BLOOD SPECIMEN / Unknown Venipuncture / Unknown 10/02/2024 6:18 AM CDT 10/02/2024 6:21 AM CDT Raj Sy MD LAB - CHEMISTRY O RDERABLES Final Result Performing Organization Address [facility] de Phone Number [facility] [address] [place] [id number] * CT Chest Abdomen Pelvis W Cont (09/30/2024 1:49 PM CDT) Anatomical Region Laterality Modality Chest, Abdomen, Pelvis Computed Tomography 09/30/2024 2:32 PM CDT Impressions 09/30/2024 2:44 PM CDT IMPRESSION: Limited study for the reasons outlined above. Findings consistent with interval surgery with a drainage catheter in the pelvis. Moderate amount of free fluid and free air can be seen in the abdomen and pelvis. Unfortunately do not have the specific details of the patient's surgery. A lenticular shaped low CT density collection measuring 3.0 x 6.4 cm is noted just deep to the anterior abdominal wall.? Hematoma or seroma. Wall thickening is noted in several loops of small bowel in the abdomen since the preop study of September 07, 2024. Please correlate with the patient's clinical and laboratory findings to determine the etiology. The patient is catheterized and the bladder is partly collapsed. A G-tube has been inserted into the stomach. A trace of infiltrate is noted in the left upper lobe adjacent to the oblique fissure and in the right posterior costophrenic angle. Please see above for other findings. > Interpreting Provider: Doug Bowman MD on 09/30/2024 2:44 PM Narrative 09/30/2024 2:44 PM CDT PROCEDURE: CT CHEST ABDOMEN PELVIS W CONT DATE/TIME OF EXAM: 09/30/2024 1:50 PM CLINICAL INFORMATION: Sepsis. Indication: I95.9: Hypotension, unspecified hypotension type Additional History: Shortness of breath COMPARISON: None. TECHNIQUE: CT of the chest, abdomen and pelvis was performed following intravenous contrast utilizing standard protocol. CT dose reduction technique was used, including Automated Exposure Control. CONTRAST: IOPAMIDOL 76 % IV SOLN:80 mL FINDINGS: CT CHEST: Attempt was made to study the patient with the CT protocol. Unfortunately, many of the images are limited due to motion artifact as well as artifacts from the upper extremities. Subtle groundglass infiltrate is noted in the left upper lobe adjacent to the oblique fissure. No pneumothorax can be seen. Subpleural thickening with a band of infiltrate or atelectasis can be seen in the right posterior costophrenic angle. A trace of subpleural thickening is noted in the left posterior costophrenic angle. The heart size is borderline. No endotracheal tube can be identified on today's axial images. Arthritic changes are noted at the left shoulder with joint space narrowing. Calcified lymph nodes are noted in the right hilum. Potential CT density nodule which may be calcified in the right lower lobe. Unfortunately this is obscured by motion artifact. CT ABDOMEN: Free fluid and free air can be seen beneath the right hemidiaphragm. These are new findings in comparison to the abdominal CT of September 07, 2024. Image detail is reduced due to artifact but the liver, spleen and kidneys are similar in size. Fluid is noted around the gallbladder. Calcified nodules persist in the spleen. The patient has a G-tube, new since the September 07, 2024 study. The G-tube balloon is probably in the stomach. Fluid is visible in the colon. Wall thickening is noted in multiple loops of small bowel in the upper and mid abdomen. CT PELVIS: A drainage catheter is now visible in the pelvis entering the right lower abdominal wall extending into the pelvis adjacent to the rectum. Skin defect is noted in the abdominal wall in the midline. A lenticular low CT density collection can be seen just deep to the anterior abdominal wall near the midline. This lenticular collection measures 3.0 x 6.4 cm in cross-section. Small air bubbles are visible in the abdominal wall near the presumed incision. Small amount of free fluid is noted anterior to the sacrum and coccyx. The rectum is distended with fluid, measuring up to 6.8 cm in transverse diameter. The patient is catheterized and the bladder is collapsed. Procedure Note Doug Bowman MD - 09/30/2024 PROCEDURE: CT CHEST ABDOMEN PELVIS W CONT DATE/TIME OF EXAM: 09/30/2024 1:50 PM CLINICAL INFORMATION: Sepsis. Indication: I95.9: Hypotension, unspecified hypotension type Additional History: Shortness of breath COMPARISON: None. TECHNIQUE: CT of the chest, abdomen and pelvis was performed following intravenous contrast utilizing standard protocol. CT dose reduction technique was used, including Automated ExposureControl. CONTRAST: IOPAMIDOL 76 % IV SOLN:80 mL FINDINGS: CT CHEST: Attempt was made to study the patient with the CT protocol.Unfortunately, many of the images are limited due to motion artifact as well asartifacts from the upper extremities. Subtle groundglass infiltrate is noted inthe left upper lobe adjacent to the oblique fissure. No pneumothorax can be seen. Subpleural thickening with a band of infiltrate or atelectasis canbe seen in the right posterior costophrenic angle. A trace of subpleural thickening is noted in the left posterior costophrenic angle. The heart size is borderline. No endotracheal tube can be identified on today'saxial images. Arthritic changes are noted at the left shoulder with jointspace narrowing. Calcified lymph nodes are noted in the right hilum. PotentialCT density nodule which may be calcified in the right lower lobe. Unfortunately this is obscured by motion artifact. CT ABDOMEN: Free fluid and free air can be seen beneath the right hemidiaphragm.These are new findings in comparison to the abdominal CT of September 07, 2024.Image detail is reduced due to artifact but the liver, spleen and kidneys are similar in size. Fluid is noted around the gallbladder. Calcifiednodules persist in the spleen. The patient has a G-tube, new since the August study. The G-tube balloon is probably in the stomach. Fluid is visiblein the colon. Wall thickening is noted in multiple loops of small bowel inthe upper and mid abdomen. CT PELVIS: A drainage catheter is now visible in the pelvis entering the rightlower abdominal wall extending into the pelvis adjacent to the rectum. Skin defect is noted in the abdominal wall in the midline. A lenticular lowCT density collection can be seen just deep to the anterior abdominal wall near the midline. This lenticular collection measures 3.0 x 6.4 cm in cross-section. Small air bubbles are visible in the abdominal wall nearthe presumed incision. Small amount of free fluid is noted anterior to the sacrum and coccyx. The rectum is distended with fluid, measuring up to6.8 cm in transverse diameter. The patient is catheterized and the bladderis collapsed. IMPRESSION: Limited study for the reasons outlined above. Findings consistent with interval surgery with a drainage catheter inthe pelvis. Moderate amount of free fluid and free air can be seen in the abdomen and pelvis. Unfortunately do not have the specific details ofthe patient's surgery. A lenticular shaped low CT density collection measuring 3.0 x 6.4 cm is noted just deep to the anterior abdominal wall.? Hematoma or seroma. Wall thickening is noted in several loops of small bowel in the abdomen since the preop study of September 07, 2024. Please correlate with thepatient's clinical and laboratory findings to determine the etiology. The patient is catheterized and the bladder is partly collapsed. AG-tube has been inserted into the stomach. A trace of infiltrate is noted in the left upper lobe adjacent to the oblique fissure and in the right posterior costophrenic angle. Please see above for other findings. > Interpreting Provider: Doug Bowman MD on 09/30/2024 2:44 PM us Raj Sy MD CT ORDERABLES F inal Result * ECHO COMPLETE (09/28/2024 3:25 PM CDT) AV area index 1.568 cm /m SSM CV FUJI PACS LA vol index 0.023 l/m SSM CV FUJI PACS Dimensionless Index 0.832 unitless SSM CV FUJI PACS Myocardial strain charge 2 unitless SSM CV FUJI PACS IVSd 2D 1.182 cm SSM CV FUJ I PACS LVIDd 6.094 cm SSM CV FUJ I PACS LVOT diam 1.952 cm SSM CV FUJ I PACS LVPWd 1.06 cm SSM CV FUJ I PACS LVOT pk grad 6.063 mmHg SSM CV FUJI PACS LVOT pk miah 123.111 cm/s SSM CV F UJI PACS LVOT VTI 16.61 cm SSM CV FUJ I PACS LA size 3.296 cm SSM CV FUJ I PACS LA vol BP 36.455 ml SSM CV FUJ I PACS AV area pk miah 2.755 cm SSM CV FUJI PACS AV area cont VTI 2.49 cm SSM CV FUJI PACS AV pk grad 7.161 mmHg SSM CV FU JI PACS AV mn grad 3.725 mmHg SSM CV FU JI PACS AV pk miah 133.798 cm/s SSM CV FUJ I PACS AV VTI 19.974 cm SSM CV FUJ I PACS MV A pk miah 1.797 cm/s SSM CV F UJI PACS MV E pk miah 108.662 cm/s SSM CV F UJI PACS MV E' lateral miah 12.672 cm/s SS M CV FUJI PACS MV pk miah regurg 545.567 cm/s SSM CV FUJI PACS MR VTI 149.711 cm SSM CV FUJ I PACS PV pk miah 102.418 cm/s SSM CV FUJ I PACS TAPSE 1.654 cm SSM CV FUJ I PACS TR pk miah 286.577 cm/s SSM CV FUJ I PACS Anatomical Region Laterality Modality Ultrasound 09/28/2024 2:23 PM CDT Narrative 09/28/2024 3:54 PM CDT Summary * The left ventricle is dilated with severely reduced systolic function and an estimated ejection fraction of 10-15% by visual estimate. * The left ventricular diastolic function is indeterminate. * Right ventricle is normal in size with mildly reduced systolic function. * There is moderate mitral valve regurgitation. * The pulmonary artery systolic pressure is normal, 34 mmHg. Patient Info Name: Charles Choudhury Age: 69 years : 1955 Gender: Male Ht: 67 in Wt: 119 lb BSA: 1.59 m2 HR: 104 bpm BP: 113 / 60 mmHg Exam Date: 09/28/2024 2:23 PM Patient Status: I/P Study Site: [facility] Primary Location: [facility] EStudy Info Exam Type: ECHO COMPLETE Indications R06.02 - SOB (shortness of breath) Procedure(s) * A complete 2D, color Doppler, spectral Doppler, and M-Mode transthoracic echocardiogram was performed. Reason for Technically Difficult Study: patient supine, patient on ventilation Staff Referring Physician: Raj Sy Ordering Provider: Raj Sy Attending Physician: Raj Sy Cable Splicing Technician: Doom Singh Left Ventricle The left ventricle is dilated. Left ventricular systolic function is severely reduced with an estimated ejection fraction of 10-15% by visual estimate. Left intraventricular dyssynchrony is seen. The left ventricular mass is normal. Left ventricular segmental wall motion is normal. The left ventricular diastolic function is indeterminate. Right Ventricle The right ventricle is normal in size. Right ventricular systolic function is mildly reduced. Left Atrium The left atrium is normal in size with a left atrial volume index of 23 ml/m2 by BP MOD. Right Atrium The right atrium is normal in size. Atrial Septum Intact interatrial septum visualized by 2D and color Doppler imaging. Aortic Valve The aortic valve is trileaflet. There is no aortic valve stenosis. There is no aortic valve regurgitation. Pulmonic Valve The pulmonic valve is normal. There is no pulmonic valve stenosis. There is no pulmonic regurgitation. Mitral Valve The mitral valve is normal. There is no mitral valve stenosis. There is moderate mitral valve regurgitation. Tricuspid Valve The tricuspid valve is normal. There is no tricuspid valve regurgitation. The pulmonary artery systolic pressure is normal, 34 mmHg. Inferior Vena Cava The inferior vena cava is normal in size (< 2.1 cm). Pericardium/Pleural There is no pericardial effusion. Aorta The aortic root at the sinus of Valsalva is normal in size. The ascending aorta is normal in size. Measurements Left Ventricular Outflow Tract Name Value Normal LVOT 2D LVOT Diameter 2.0 cm LVOT Area 3.0 cm2 LVOT Doppler LVOT Peak Velocity 1.2 m/s LVOT Peak Gradient 6 mmHg LVOT Mean Velocity 78.64 cm/s LVOT Mean Gradient 3 mmHg LVOT VTI 16.6 cm LVOT VTI/AV VTI Ratio 0.8 LVOT Stroke Volume 50 ml LVOT Stroke Volume Index 31 ml/m2 35-58 LVOT CO 5.2 l/min LVOT CI 3.3 l/min/m2 Pulmonic Valve Name Value Normal PV Doppler PV Peak Velocity 1.0 m/s PV Peak Gradient 3 mmHg Mitral Valve Name Value Normal MV Doppler MV PHT 25 ms MV Area (PHT) 8.71 cm2 4.00-5.00 MV Regurgitation Doppler MR ERO (PISA) 0.15 cm2 MR Volume (PISA) 23 ml MV Diastolic Function MV E Peak Velocity 1.1 m/sec MV A Peak Velocity 0.0 m/sec MV E/A 60.5 MV Decel Time (PW) 87 ms MV Annular TDI MV Lateral e' Velocity 13 cm/s >=10 MV E/e' (Lateral) 9 <=8 Tricuspid Valve Name Value Normal TV Regurgitation Doppler TR Peak Velocity 2.9 m/s TR Peak Gradient 33 mmHg Estimated PAP/RSVP PA Systolic Pressure 34 mmHg <35 TV Annular TDI TV Lateral Erica s' Velocity 11 cm/s 10-19 Aorta Name Value Normal Ascending Aorta Ao Root Diameter (MM) 3.1 cm Ao Root Diam Index (MM) 1.9 cm/m2 Aortic Valve Name Value Normal AV Doppler AV Peak Velocity 1.34 m/s AV Peak Gradient 7 mmHg AV Mean Gradient 4 mmHg AV VTI 20 cm AV Area (Cont Eq VTI) 2.49 cm2 >=2.00 AV Area (Cont Eq Miah) 2.75 cm2 AV DI (VTI) 0.83 AV DI (Miah) 0.92 AV Regurgitation 2D LVOT Area 2.99 cm2 Ventricles Name Value Normal LV Dimensions 2D/MM IVS Diastolic Thickness (2D) 1.2 cm 0.6-1.0 LVID Diastole (2D) 6.1 cm 4.2-5.8 LVPW Diastolic Thickness (2D) 1.1 cm 0.6-1.0 LV Mass (2D Cubed) 294 g 88-224 LV Mass Index (2D Cubed) 185 g/m2 49-115 Relative Wall Thickness (2D) 0.35 <=0.42 RV Dimensions 2D/MM TAPSE 1.7 cm >=1.7 Atria Name Value Normal LA Dimensions LA Dimension (2D) 3.3 cm 3.0-4.1 LA Dimen Index (2D) 2.1 cm/m2 LA Volume (BP MOD) 36 ml LA Volume Index (BP MOD) 23 ml/m2 16-34 Report Signatures Finalized by Errol Gary on 09/28/2024 03:54 PM Procedure Note Errol Gary MD - 09/28/2024 Summary * The left ventricle is dilated with severely reduced systolic functionand an estimated ejection fraction of 10-15% by visual estimate. * The left ventricular diastolic function is indeterminate. * Right ventricle is normal in size with mildly reduced systolicfunction. * There is moderate mitral valve regurgitation. * The pulmonary artery systolic pressure is normal, 34 mmHg. Patient Info Name: Charles Choudhury Age: 69 years : 1955 Gender: Male Ht: 67 in Wt: 119 lb BSA: 1.59 m2 HR: 104 bpm BP: 113 / 60 mmHg Exam Date: 09/28/2024 2:23 PM Patient Status: I/P Study Site: [facility] Primary Location: [facility] EStudy Info Exam Type: ECHO COMPLETE Indications R06.02 - SOB (shortness of breath) Procedure(s) * A complete 2D, color Doppler, spectral Doppler, and M-Modetransthoracic echocardiogram was performed. Reason for Technically Difficult Study: patient supine, patient on ventilation Staff Referring Physician: Raj Sy Ordering Provider: Raj Sy Attending Physician: Raj Sy Cable Splicing Technician: Domo Singh Left Ventricle The left ventricle is dilated. Left ventricular systolic function is severely reduced with an estimated ejection fraction of 10-15% by visual estimate. Left intraventricular dyssynchrony is seen. The leftventricular mass is normal. Left ventricular segmental wall motion is normal. Theleft ventricular diastolic function is indeterminate. Right Ventricle The right ventricle is normal in size. Right ventricular systolicfunction is mildly reduced. Left Atrium The left atrium is normal in size with a left atrial volume index of23 ml/m2 by BP MOD. Right Atrium The right atrium is normal in size. Atrial Septum Intact interatrial septum visualized by 2D and color Doppler imaging. Aortic Valve The aortic valve is trileaflet. There is no aortic valve stenosis. Thereis no aortic valve regurgitation. Pulmonic Valve The pulmonic valve is normal. There is no pulmonic valve stenosis. Thereis no pulmonic regurgitation. Mitral Valve The mitral valve is normal. There is no mitral valve stenosis. Thereis moderate mitral valve regurgitation. Tricuspid Valve The tricuspid valve is normal. There is no tricuspid valveregurgitation. The pulmonary artery systolic pressure is normal, 34 mmHg. Inferior Vena Cava The inferior vena cava is normal in size (< 2.1 cm). Pericardium/Pleural There is no pericardial effusion. Aorta The aortic root at the sinus of Valsalva is normal in size. Theascending aorta is normal in size. Measurements Left Ventricular Outflow Tract Name Value Normal LVOT 2D LVOT Diameter 2.0 cm LVOT Area 3.0 cm2 LVOT Doppler LVOT Peak Velocity 1.2 m/s LVOT Peak Gradient 6 mmHg LVOT Mean Velocity 78.64 cm/s LVOT Mean Gradient 3 mmHg LVOT VTI 16.6 cm LVOT VTI/AV VTI Ratio 0.8 LVOT Stroke Volume 50 ml LVOT Stroke Volume Index 31 ml/m2 35-58 LVOT CO 5.2 l/min LVOT CI 3.3 l/min/m2 Pulmonic Valve Name Value Normal PV Doppler PV Peak Velocity 1.0 m/s PV Peak Gradient 3 mmHg Mitral Valve Name Value Normal MV Doppler MV PHT 25 ms MV Area (PHT) 8.71 cm2 4.00-5.00 MV Regurgitation Doppler MR ERO (PISA) 0.15 cm2 MR Volume (PISA) 23 ml MV Diastolic Function MV E Peak Velocity 1.1 m/sec MV A Peak Velocity 0.0 m/sec MV E/A 60.5 MV Decel Time (PW) 87 ms MV Annular TDI MV Lateral e' Velocity 13 cm/s >=10 MV E/e' (Lateral) 9 <=8 Tricuspid Valve Name Value Normal TV Regurgitation Doppler TR Peak Velocity 2.9 m/s TR Peak Gradient 33 mmHg Estimated PAP/RSVP PA Systolic Pressure 34 mmHg <35 TV Annular TDI TV Lateral Erica s' Velocity 11 cm/s 10-19 Aorta Name Value Normal Ascending Aorta Ao Root Diameter (MM) 3.1 cm Ao Root Diam Index (MM) 1.9 cm/m2 Aortic Valve Name Value Normal AV Doppler AV Peak Velocity 1.34 m/s AV Peak Gradient 7 mmHg AV Mean Gradient 4 mmHg AV VTI 20 cm AV Area (Cont Eq VTI) 2.49 cm2 >=2.00 AV Area (Cont Eq Miah) 2.75 cm2 AV DI (VTI) 0.83 AV DI (Miah) 0.92 AV Regurgitation 2D LVOT Area 2.99 cm2 Ventricles Name Value Normal LV Dimensions 2D/MM IVS Diastolic Thickness (2D) 1.2 cm 0.6-1.0 LVID Diastole (2D) 6.1 cm 4.2-5.8 LVPW Diastolic Thickness (2D) 1.1 cm 0.6-1.0 LV Mass (2D Cubed) 294 g 88-224 LV Mass Index (2D Cubed) 185 g/m2 49-115 Relative Wall Thickness (2D) 0.35 <=0.42 RV Dimensions 2D/MM TAPSE 1.7 cm >=1.7 Atria Name Value Normal LA Dimensions LA Dimension (2D) 3.3 cm 3.0-4.1 LA Dimen Index (2D) 2.1 cm/m2 LA Volume (BP MOD) 36 ml LA Volume Index (BP MOD) 23 ml/m2 16-34 Report Signatures Finalized by Errol Gary on 09/28/2024 03:54 PM us Raj Sy MD ECHO BALJINDER F inal Result * HEMOGLOBIN A1C (09/28/2024 3:51 AM CDT) Hemoglobin A1c 5.6 <5.7 % 09/28/2024 4:28 AM CDT [facility] Estimated Average Glucose 114 mg/dL 09/28/2024 4:28 AM CDT [facility] Blood BLOOD SPECIMEN / Unknown Venipuncture / Unknown 09/28/2024 3:51 AM CDT 09/28/2024 3:57 AM CDT Narrative [facility] - 09/28/2024 4:28 AM CDT HbA1c Interpretation: Normal: < 5.7% Pre-diabetes: 5.7-6.4% Diabetes: Equal to or greater than 6.5% Test results diagnostic of diabetes should be repeated for confirmation. Treatment target values recommended by ADA and other clinical organizations should be used to evaluate metabolic control in patients. This test should not replace glucose testing for patients with Type 1 diabetes, pediatric patients, or women. Falsely low HbA1c results may be observed in patients with clinical conditions that shorten erythrocyte life span or decrease mean erythrocyte age such as the presence of unstable hemoglobin variants, elevated hemoglobin F level or other causes of hemolytic anemia. HbA1c may not accurately reflect glycemic control when clinical conditions that affect erythrocyte survival are present. Severe Iron deficiency anemia may yield falsely high results. Hemoglobin A1c assay should not be used to diagnose or monitor diabetes in patients with malignancy, recent blood transfusion, chronic kidney or liver disease. This method may yield falsely low results when hemoglobin (HbF) exceeds 5% in the specimen. The [place] [employer] assay for the measurement of HbA1c is a National Glycohemoglobin Standardization Program (NGSP) certified method. us Raj Sy MD LAB - CHEMISTRY O RDERABLES Final Result [facility] [address] [place] [address] * (ABNORMAL) BLOOD GASES ARTERIAL (09/27/2024 9:44 AM CDT) Only the most recent of2 resultswithin the time period is included. pH Arterial 7.30(L) 7.35 - 7.45 pH 09/27/2024 9:47 AM CDT [facility] pO2 Arterial 212(H) 80 - 100 mmHg 09/27/2024 9:47 AM CDT [facility] pCO2 Arterial 59(H) 35 - 45 mmHg 09/27/2024 9:47 AM CDT [facility] HCO3 Arterial 29.0(H) 22.0 - 26.0 mmol/L 09/27/2024 9:47 AM CDT [facility] BE Arterial 1.2 -2.0 - 2.0 mmol/L 09/27/2024 9:47 AM CDT [facility] O2 Saturation Arterial 100 90 - 100 % 09/27/2024 9:47 AM CDT [facility] Alli's Test Yes 09/27/2024 9:47 AM CDT [facility] Sample Site Left BA 09/27/2024 9:47 AM CDT [facility] Mode A/C 09/27/2024 9:47 AM CDT [facility] FI O2 100.0 % 09/27/2024 9:47 AM CDT [facility] Mechanical Tidal Volume (mL) 420 09/27/2024 9:47 AM CDT [facility] Mechanical Respiratory Rate (bpm) 20 09/27/2024 9:47 AM CDT [facility] Blood, arterial ARTERIAL BLOOD SPECIMEN / Unknown 09/27/2024 9:44 AM CDT 09/27/2024 9:44 AM CDT us Raj Sy MD LAB - BLOOD GASES ORDERABLES Final Result [facility] [address] [phone] * (ABNORMAL) CULTURE SPUTUM+GRAM STAIN (09/27/2024 8:38 AM CDT) Culture Rare Klebsiella pneumoniae extended-spectrum beta-lactamase (ESBL)(A) RG 09/30/2024 7:17 AM CDT [facility] Comment:Isolate is multi bernie g resistant organism (MDRO). Culture Light normal oropharyngeal karen RG 09/30/2024 7:17 AM CDT [facility] Gram Stain No organisms seen 025 7:17 AM CDT [facility] Gram Stain Light Polymorphonuclear cells 09/30/2024 7:17 AM T [facility] Gram Stain Light Squamous epithelial cells 09/30/2024 7:17 AM T [facility] Microbiology SPUTUM / Unknown Collection / Unknown 09/27/2024 8:38 AM CDT 09/27/2024 8:41 AM CDT Narrative [facility] - 09/30/2024 7:17 AM CDT This isolate is a multidrug resistant organism (MDRO). MDROs are resistant to 3 or more classes of antibiotics. Contact Precautions required. Infectious Diseases consult recommended. Organism Antibiotic Method Susceptibility Klebsiella pneumoniae extended-spectrum beta-lactamase (ESBL) Amikacin RG <=2 ug/mL: Susceptible Klebsiella pneumoniae extended-spectrum beta-lactamase (ESBL) Ampicillin-sulbactam RG >=32 ug/mL: Resistant Klebsiella pneumoniae extended-spectrum beta-lactamase (ESBL) Cefazolin RG >=64 ug/mL: Resistant Klebsiella pneumoniae extended-spectrum beta-lactamase (ESBL) Cefepime RG >=64 ug/mL: Resistant Klebsiella pneumoniae extended-spectrum beta-lactamase (ESBL) Ceftriaxone RG >=64 ug/mL: Resistant Klebsiella pneumoniae extended-spectrum beta-lactamase (ESBL) Ciprofloxacin RG >=4 ug/mL: Resistant Klebsiella pneumoniae extended-spectrum beta-lactamase (ESBL) Extended-Spectrum Beta-Lactamase RG POS ug/mL: Pos Klebsiella pneumoniae extended-spectrum beta-lactamase (ESBL) Gentamicin RG <=1 ug/mL: Susceptible Klebsiella pneumoniae extended-spectrum beta-lactamase (ESBL) Meropenem RG <=0.25 ug/mL: Susceptible Klebsiella pneumoniae extended-spectrum beta-lactamase (ESBL) Piperacillin-tazobactam RG >=128 ug/mL: Resistant Klebsiella pneumoniae extended-spectrum beta-lactamase (ESBL) Tobramycin RG 8 ug/mL: Resistant Klebsiella pneumoniae extended-spectrum beta-lactamase (ESBL) Trimethoprim-sulfamethoxa zole RG >=320 ug/mL: Resistant Comment: Extended-spectrum beta-lactamase (ESBL) producing organism. Beta-lactam/beta-lactamase inhibitor combinations may not be effective for treatment of bloodstream infections and other severe infections regardless of in vitro susceptibility testing results. Infectious Disease consult recommended. Contact precautions required. Raj Sy MD LAB - MICROBIOLOG Y ORDERABLES Final Result [facility] [address] [place] [address], [facility] [phone] * TRANSFUSE RED BLOOD CELL LEUKOREDUCED UNIT(S) (09/26/2024 9:23 PM CDT) Lynn Brenner MD NURSING - BLOOD PROD TRANSFUSIO N Final Result * PREPARE (CROSSMATCH) RBC UNIT(S), 1 Units (09/26/2024 4:42 PM CDT) Unit Description AS1 LR PRBC [facility] Unit ABO A [facility] Unit Rh POS [facility] Product Number R02 [facility] Unit Donor # [id number] [facility] Unit Status transfused [facility] Product Code N3873B34 [facility] Blood Type Barcode 6200 [facility] Expiration Date [id number] D [facility] Blood Bank BLOOD SPECIMEN / Unknown 09/26/2024 4:42 PM CDT 09/26/2024 4:48 PM CDT Lynn Brenner MD LAB - BLOOD BANK ORDERABLES Fin al Result [facility] [address] [place] [address], [facility] [phone] * TYPE + SCREEN PANEL (09/26/2024 4:42 PM CDT) ABO Rh A POS 09/26/2024 5:26 PM CDT [facility] Comment:No history; collect retype. Antibody Screen NEG 5:26 PM CDT [facility] Blood Bank BLOOD SPECIMEN / Unknown Venipuncture / Unknown 09/26/2024 4:42 PM CDT 09/26/2024 4:48 PM CDT us Lynn Brenner MD LAB - BLOOD BANK ORDERABLES Fin al Result [facility] [address] [phone] * BLOOD TYPE VERIFICATION (09/26/2024 4:19 PM CDT) Pathologist [facility] ABO Rh A POS 09/26/2024 5:2 6 PM CDT [facility] Blood Bank BLOOD SPECIMEN / Unknown Venipuncture / Unknown 09/26/2024 4:19 PM CDT 09/26/2024 4:44 PM CDT us Lynn Brenner MD LAB - BLOOD BANK ORDERABLES Fin al Result Performing Organization Address [facility] Co de Phone Number [facility] [id number] [place] [address] * (ABNORMAL) DIFFERENTIAL MANUAL (09/25/2024 3:58 AM CDT) Only the most recent of3 resultswithin the time period is included. Neutrophil % 91(H) 41 - 74 % 09/25/2024 4:47 AM CDT [facility] Lymphocyte % 5(L) 17 - 47 % 09/25/2024 4:47 AM CDT [facility] Monocyte % 4 3 - 11 % 09/25/2024 4:47 AM CDT [facility] Neutrophil Absolute 14.83(H) 1.60 - 7.50 x10E9/L 09/25/2024 4:47 AM CDT [facility] Lymphocyte Absolute 0.82(L) 1.00 - 4.40 x10E9/L 09/25/2024 4:47 AM CDT [facility] Monocyte Absolute 0.65 0.15 - 1.00 x10E9/L 09/25/2024 4:47 AM CDT [facility] RBC Morphology REVIEWED 09/25/2024 4:47 AM CDT [facility] Toxic Changes PRESENT(A) (none) 09/25/2024 4:47 AM CDT [facility] Blood BLOOD SPECIMEN / Unknown Line Draw / Unknown 09/25/2024 3:58 AM CDT 09/25/2024 4:02 AM CDT Checo Coley MD LAB - HEMATOLOGY ORDERABLES Fi nal Result Performing Organization Address City/[facility]/ZIP Co de Phone Number [facility] [address] [place] [address] * (ABNORMAL) CULTURE FUNGUS OTHER+FUNGUS SMEAR (09/24/2024 3:32 PM CDT) Culture Moderate Sharri glabrata(A) 10/18/2024 9:42 AM CDT [facility] Fungus Stain Moderate Yeast(A) 10/18/2024 9:42 AM CDT [facility] Microbiology ABDOMINOPELVIC CAVIT Y STRUCTURE / Unknown 09/24/2024 3:32 PM CDT 09/24/2024 4:27 PM CDT Narrative [facility] - 10/18/2024 9:42 AM CDT Surgical Description: Abdominal Wound Culture Maicol Roque MD LAB - MICROBIOLOGY ORDERABLES Final Result Performing Organization Address [facility] de Phone Number [facility] [address] [place] [address], [facility] [phone] * (ABNORMAL) CULTURE WOUND+GRAM STAIN (09/24/2024 3:32 PM CDT) Culture Heavy Klebsiella pneumoniae extended-spectrum beta-lactamase (ESBL)(A) RG 09/28/2024 3:58 PM CDT [facility] Comment: Isolate is multi drug resistant organism (MDRO). Strain 1 Culture Heavy Klebsiella pneumoniae extended-spectrum beta-lactamase (ESBL)(A) RG 09/28/2024 3:58 PM CDT [facility] Comment: Isolate is multi drug resistant organism (MDRO). Isolate is carbapenem resistant Strain 2 Culture Heavy Streptococcus parasanguinis(A) RG 09/28/2024 3:58 PM CDT [facility] Culture Heavy Sharri glabrata(A) 09/28/2024 3:58 PM CDT [facility] Culture Rare Staphylococcus epidermidis(A) 09/28/2024 3:58 PM CDT [facility] Gram Stain Light Polymorphonuclear cells 09/28/2024 3:58 PM CDT [facility] Gram Stain Rare Gram-positive bacilli 09/28/2024 3:58 PM CDT [facility] Gram Stain Rare Yeast 09/28/2024 3:58 PM CDT [facility] Gram Stain Rare Gram-positive cocci 09/28/2024 3:58 PM CDT [facility] Microbiology ABDOMINOPELVIC CAVIT Y STRUCTURE / Unknown 09/24/2024 3:32 PM CDT 09/24/2024 4:27 PM CDT Narrative [facility] - 09/28/2024 3:58 PM CDT Contact Precautions Required. This isolate is carbapenem resistant. Contact precautions required. Infectious Disease consult recommended. This isolate is a multidrug resistant organism (MDRO). MDROs are resistant to 3 or more classes of antibiotics. Contact Precautions required. Infectious Diseases consult recommended. Organisms seen on initial Gram stain may be anaerobic or not viable for aerobic growth. Surgical Description: Abdominal Wound Culture Organism Antibiotic Method Susceptibility Klebsiella pneumoniae extended-spectrum beta-lactamase (ESBL) Amikacin RG <=2 ug/mL: Susceptible Klebsiella pneumoniae extended-spectrum beta-lactamase (ESBL) Ampicillin-sulbactam RG >=32 ug/mL: Resistant Klebsiella pneumoniae extended-spectrum beta-lactamase (ESBL) Cefazolin RG >=64 ug/mL: Resistant Klebsiella pneumoniae extended-spectrum beta-lactamase (ESBL) Cefepime RG >=64 ug/mL: Resistant Klebsiella pneumoniae extended-spectrum beta-lactamase (ESBL) Ceftriaxone RG >=64 ug/mL: Resistant Klebsiella pneumoniae extended-spectrum beta-lactamase (ESBL) Ciprofloxacin RG >=4 ug/mL: Resistant Klebsiella pneumoniae extended-spectrum beta-lactamase (ESBL) Extended-Spectrum Beta-Lactamase RG POS ug/mL: Pos Klebsiella pneumoniae extended-spectrum beta-lactamase (ESBL) Gentamicin RG >=16 ug/mL: Resistant Klebsiella pneumoniae extended-spectrum beta-lactamase (ESBL) Meropenem RG <=0.25 ug/mL: Susceptible Klebsiella pneumoniae extended-spectrum beta-lactamase (ESBL) Piperacillin-tazobactam RG >=128 ug/mL: Resistant Klebsiella pneumoniae extended-spectrum beta-lactamase (ESBL) Tobramycin RG 8 ug/mL: Resistant Klebsiella pneumoniae extended-spectrum beta-lactamase (ESBL) Trimethoprim-sulfamethoxa zole RG >=320 ug/mL: Resistant Comment: Extended-spectrum beta-lactamase (ESBL) producing organism. Beta-lactam/beta-lactamase inhibitor combinations may not be effective for treatment of bloodstream infections and other severe infections regardless of in vitro susceptibility testing results. Infectious Disease consult recommended. Contact precautions required. Klebsiella pneumoniae extended-spectrum beta-lactamase (ESBL) Amikacin RG <=2 ug/mL: Susceptible Klebsiella pneumoniae extended-spectrum beta-lactamase (ESBL) Ampicillin-sulbactam RG >=32 ug/mL: Resistant Klebsiella pneumoniae extended-spectrum beta-lactamase (ESBL) Cefazolin RG 32 ug/mL: Resistant Klebsiella pneumoniae extended-spectrum beta-lactamase (ESBL) Cefepime RG >=64 ug/mL: Resistant Klebsiella pneumoniae extended-spectrum beta-lactamase (ESBL) Ceftriaxone RG >=64 ug/mL: Resistant Klebsiella pneumoniae extended-spectrum beta-lactamase (ESBL) Ciprofloxacin RG >=4 ug/mL: Resistant Klebsiella pneumoniae extended-spectrum beta-lactamase (ESBL) Ertapenem RG 2 ug/mL: Resistant Klebsiella pneumoniae extended-spectrum beta-lactamase (ESBL) Extended-Spectrum Beta-Lactamase RG POS ug/mL: Pos Klebsiella pneumoniae extended-spectrum beta-lactamase (ESBL) Gentamicin RG <=1 ug/mL: Susceptible Klebsiella pneumoniae extended-spectrum beta-lactamase (ESBL) Meropenem RG <=0.25 ug/mL: Susceptible Klebsiella pneumoniae extended-spectrum beta-lactamase (ESBL) Tobramycin RG 8 ug/mL: Resistant Klebsiella pneumoniae extended-spectrum beta-lactamase (ESBL) Trimethoprim-sulfamethoxa zole RG >=320 ug/mL: Resistant Comment: Extended-spectrum beta-lactamase (ESBL) producing organism. Beta-lactam/beta-lactamase inhibitor combinations may not be effective for treatment of bloodstream infections and other severe infections regardless of in vitro susceptibility testing results. Infectious Disease consult recommended. Contact precautions required. Maicol Roque MD LAB - MICROBIOLOGY ORDERABLES Final Result [facility] [address] [place], [place] [id number] [place] [address] * (ABNORMAL) CULTURE ANAEROBE (09/24/2024 3:32 PM CDT) Pathologist [facility] Culture Light Bifidobacterium species(A) 09/29/2024 10:54 AM CDT [facility] Microbiology ABDOMINOPELVIC CAVIT Y STRUCTURE / Unknown 09/24/2024 3:32 PM CDT 09/24/2024 4:27 PM CDT Narrative [facility] - 09/29/2024 10:54 AM CDT Surgical Description: Abdominal Wound Culture us Maicol Roque MD LAB - MICROBIOLOGY ORDERABLES Final Result [facility] [address] [phone] * (ABNORMAL) BLOOD GASES+LYTES ARTERIAL (09/24/2024 2:17 PM CDT) pH Arterial 7.48(H) 7.35 - 7.45 pH 09/24/2024 2:19 PM CDT [facility] pO2 Arterial 380(H) 80 - 100 mmHg 09/24/2024 2:19 PM CDT [facility] pCO2 Arterial 39 35 - 45 mmHg 09/24/2024 2:19 PM CDT [facility] HCO3 Arterial 29.0(H) 22.0 - 26.0 mmol/L 09/24/2024 2:19 PM CDT [facility] BE Arterial 5.2(H) -2.0 - 2.0 mmol/L 09/24/2024 2:19 PM CDT [facility] O2 Saturation Arterial 100 90 - 100 % 09/24/2024 2:19 PM CDT [facility] Sodium Whole Blood 135 135 - 145 mmol/L 09/24/2024 2:19 PM CDT [facility] Potassium Whole Blood 3.1(L) 3.5 - 5.5 mmol/L 09/24/2024 2:19 PM CDT [facility] Chloride WB 104 101 - 111 mmol/L 09/24/2024 2:19 PM CDT [facility] Calcium Ionized 1.31 mmol/L 2:19 PM CDT [facility] Ionized Calcium pH Adjusted 1.35(H) 1.19 - 1.34 mmol/L 09/24/2024 2:19 PM CDT [facility] Alli's Test NA 09/24/2024 2:19 PM CDT [facility] Sample Site Art Line 09/24/2024 2:19 PM CDT [facility] FI O2 100.0 % 09/24/2024 2:19 PM CDT [facility] Mechanical Tidal Volume (mL) 500 09/24/2024 2:19 PM CDT [facility] Mechanical Respiratory Rate (bpm) 16 09/24/2024 2:19 PM CDT [facility] PEEP (cmH2O) 5 09/24/2024 2:19 PM CDT [facility] Anion Gap (AG) Arterial 5(L) 8 - 18 mmol/L 09/24/2024 2:19 PM CDT [facility] Blood, arterial ARTERIAL BLOOD SPECIMEN / Unknown 09/24/2024 2:17 PM CDT 09/24/2024 2:17 PM CDT us Lynn Brenner MD LAB - BLOOD GASES ORDERABLES Fi nal Result Performing Organization Address [facility]/ZIP Co de Phone Number [facility] [address] [place] [address] * SLIDE SCAN HEMATOLOGY (09/24/2024 3:19 AM CDT) Pathologist [facility] RBC Morphology RED CELL INDICIES CONFIRMED 09/24/2024 3:56 AM CDT [facility] Blood BLOOD SPECIMEN / Unknown Venipuncture / Unknown 09/24/2024 3:19 AM CDT 09/24/2024 3:24 AM CDT us Checo Coley MD LAB - HEMATOLOGY ORDERABLES Fi nal Result Performing Organization Address [facility] Co de Phone Number [facility] [address] [place] [address] * (ABNORMAL) BASIC METABOLIC PANEL (CALCIUM TOTAL) (09/23/2024 10:25 AM CDT) [facility] Glucose 78 70 - 99 mg/dL 09/23/2024 11:04 AM CDT [facility] Sodium 136 136 - 145 mmol/L 09/23/2024 11:04 AM CDT [facility] Potassium 3.5 3.5 - 5.1 mmol/L 09/23/2024 11:04 AM CDT [facility] Chloride 100 98 - 107 mmol/L 09/23/2024 11:04 AM CDT [facility] CO2 29 22 - 29 mmol/L 09/23/2024 11:04 AM CDT [facility] Calcium 7.3(L) 8.4 - 10.4 mg/dL 09/23/2024 11:04 AM CDT [facility] Anion Gap 7 6 - 16 mmol/L 09/23/2024 11:04 AM CDT [facility] BUN 19 7 - 26 mg/dL 09/23/2024 11:04 AM CDT [facility] Creatinine 0.72 0.72 - 1.25 mg/dL 09/23/2024 11:04 AM T [facility] eGFR by CKD-EPI >90 >=90 mL/min/1.7 3 m2 09/23/2024 11:04 AM CDT [facility] Blood BLOOD SPECIMEN / Unknown Venipuncture / Unknown 09/23/2024 10:25 AM CDT 09/23/2024 10:35 AM CDT Tuan Lock MD LAB - CHEMISTRY ORDERABLES nal Result [facility] [address] [place] [address] * CT ABDOMEN PELVIS W CONTRAST (09/07/2024 3:55 PM CDT) Anatomical Region Laterality Modality Abdomen, Pelvis Computed Tomogra phy 09/07/2024 4:09 PM CDT Impressions 09/07/2024 5:22 PM CDT Impression: 1.Mild mucosal hyperenhancement in a short segment of sigmoid colon, may be representing colitis Report drafted by Kenny Smalls (resident) Jersey Donaldson MD have personally reviewed and interpreted this examination/study. > Interpreting Provider: Jersey Russell MD on 09/07/2024 5:22 PM Narrative 09/07/2024 5:22 PM CDT Procedure Information DATE: 09/07/2024 3:55 PM EXAMINATION: Computed tomography (CT) of the abdomen and pelvis with contrast TECHNIQUE: CT of the abdomen and pelvis was performed following the uneventful administration of 100 mL of Isovue 370 intravenous contrast according to standard protocol. Clinical Information HISTORY: R10.84: Generalized abdominal pain COMPARISON: None. Findings Lower Chest: Normal. Hepatobiliary: Scattered calcified granulomas in the liver. No enhancing liver lesion. Gallbladder is normal without visualized gallstones. No intrahepatic or extrahepatic biliary dilatation. Pancreas: Normal. Spleen: Scattered calcified granuloma. Spleen size is normal. Kidneys: Several subcentimeter hypodensities in bilateral kidneys are too small to characterize but statistically most likely representing cysts. No solid renal mass, hydronephrosis or nephrolithiasis. Adrenals: Normal. Retroperitoneum: No retroperitoneal hematoma or lymphadenopathy. Gastrointestinal: Mild mucosal hyperenhancement in a short segment of sigmoid colon, may be artifactual or representing colitis. Appendix: Normal. Mesentery: Normal. Pelvic Structures: Normal. Vasculature: Scattered atherosclerotic vasculature changes. Bones: The visible osseous structures are intact. Soft tissues: Normal. Procedure Note Jersey Russell MD - 09/07/2024 Procedure Information DATE: 09/07/2024 3:55 PM EXAMINATION: Computed tomography (CT) of the abdomen and pelvis with contrast TECHNIQUE: CT of the abdomen and pelvis was performed following the uneventful administration of 100 mL of Isovue 370 intravenous contrast according to standard protocol. Clinical Information HISTORY: R10.84: Generalized abdominal pain COMPARISON: None. Findings Lower Chest: Normal. Hepatobiliary: Scattered calcified granulomas in the liver. No enhancing liver lesion. Gallbladder is normal without visualized gallstones. No intrahepatic or extrahepatic biliary dilatation. Pancreas: Normal. Spleen: Scattered calcified granuloma. Spleen size is normal. Kidneys: Several subcentimeter hypodensities in bilateral kidneys are too smallto characterize but statistically most likely representing cysts. No solid renal mass, hydronephrosis or nephrolithiasis. Adrenals: Normal. Retroperitoneum: No retroperitoneal hematoma or lymphadenopathy. Gastrointestinal: Mild mucosal hyperenhancement in a short segment of sigmoid colon, maybe artifactual or representing colitis. Appendix: Normal. Mesentery: Normal. Pelvic Structures: Normal. Vasculature: Scattered atherosclerotic vasculature changes. Bones: The visible osseous structures are intact. Soft tissues: Normal. Impression: 1.Mild mucosal hyperenhancement in a short segment of sigmoid colon, maybe representing colitis Report drafted by Kenny Smalls (resident) I, Jersey Russell MD have personally reviewed and interpreted this examination/study. > Interpreting Provider: Jersey Russell MD on 09/07/2024 5:22 PM Lalita Serrato PA-C CT ORDERABLES Final Resul t * (ABNORMAL) LIPASE BLOOD (09/07/2024 12:58 PM CDT) Pathologist [facility] Lipase 138(H) 8 - 78 U/L 09/07/2024 2:30 PM CDT [facility] Blood BLOOD SPECIMEN / Unknown Venipuncture / Unknown 09/07/2024 12:58 PM CDT 09/07/2024 1:13 PM CDT Narrative [facility] - 09/07/2024 2:30 PM CDT Lipase results from the [facility] Alinity analyzer may not be comparable with other methodologies. Lalita Serrato PA-C LAB - CHEMISTRY ORDERABLES Final Result Performing Organization Address [facility]/State/ZIP Co de Phone Number [address] [address], [facility] [phone] * HEPATITIS C GENOTYPE (05/19/2018 2:16 PM [facility] HARVE[facility]) HCV Genotype HCV Genotype 1a Not Detected 06/03/2018 10:55 AM [facility] HCV Genotype Interpretation 06/03/2018 10:55 AM [facility] Comment:The Hepatitis C padmini type RT-PCR determination was performed on a serum sample. Genotype identification was successful. Blood BLOOD SPECIMEN / Unknown Lab Venipuncture / Unknown 05/19/2018 2:16 PM [facility] 05/19/2018 2:35 PM [facility] Narrative [facility] - 06/03/2018 10:55 AM [facility] The [facility] Real Time HCV Genotype II is intended for use as an aid in the management of HCV-infected individuals and in guiding the selection of therapeutic treatment indicated for genotypes 1, 1a, 1b, and 2-5. The assay is intended for use on patients who are chronically infected with HCV, are being considered for antiviral treatment, and are positive for HCV RNA. The analytical sensitivity of the assay is 500 IU/mL. While the genotype assay is qualitative, testing cannot be reliably performed on samples with less than 500 IU/mL HCV. The detection of HCV RNA in serum is based on the isolation of HCV RNA with reverse automation machine operator of genomic HCV RNA followed by real-time PCR in the presence of an unrelated RNA internal control. The internal control ensures that RNA is isolated, and that no general significant inhibitors of the RT-PCR process are present. Genotype specific probes allow differentiation of genotype. The analysis was performed using an [place] FDA approved test methodology ([facility] Real Time HCV Genotype II). Jia Nelson BULL LADLE TENDER-CRIMINAL DEFENSE ATTORNEY LAB - CHEMISTRY JOSE ANGEL GIANG Final Result Performing Organization Address City/State/[facility] Co de Phone Number [facility] [address] [phone] from Last 3 Months or Most Recently Relevant to Health Maintenance Additional Health Concerns Infection Onset Date Last Indicated ESBL GNR 09/24/2024 09/27/2024 MDRO 09/24/2024 09/27/2024 CRE 09/24/2024 09/24/2024 Insurance [place] [facility] MEDICAID - [place] Advance Directives * LIMITED RESUSCITATION-PRIOR AND AFTER ARREST (Latest Code Status on File) Date Activated Date Inactivated Comments 10/10/2024 7:30 PM 10/17/2024 6:30 PM Question Answer Comments Limited Resuscitation: No Chest Compress ionNo Intubation, No Invasive Ventilation * Full Code Date Activated Date Inactivated Comments 09/24/2024 7:38 PM 10/10/2024 7:30 PM * DNR - IF PULSELESS NO CPR, NO SHOCK Date Activated Date Inactivated Comments 09/22/2024 10:13 PM 09/24/2024 7:38 PM Question Answer Comments : DO NOT discontinue a ny active orders without asking attending physician. * Full Code Date Activated Date Inactivated Comments 09/22/2024 8:54 PM 09/22/2024 10:13 PM Care Teams Host Hostess Relationship Specialty Start Date End Date Unknown, Unknown PCP - General 09/22/24
--- OUTSIDE RECORDS SUMMARY | 2024-11-02 09:10 | XMS_ITS | Clinical Summary ---
Author Organization [facility] Address [address] [place] [address] Care Team Providers Care Damper Maker Name Role Phone Nayeli FAITH MD, Sulaiman Banda Primary Care Provider Social History Tobacco Use Types Packs/Day Years Used Date Smoking Tobacco: Never Assessed Sex and Gender Information Value Date Recorded Sex Assigned at Not on file Legal Sex Male 6:40 PM CDT Gender Identity Not on file Sexual Orientation Not on file Plan of Treatment Health Maintenance Due Date Last Done Comments Colorectal Cancer Screening Colonoscopy (10 Years) 1957 Hepatitis C 1975 DTaP, Tdap and Td Vaccines ( 1 - Tdap) 1976 Pneumococcal Vaccine: 50+ Ye ars (1 of 1 - PCV) 2007 Zoster Vaccines (1 of 2) 2007 COVID-19 Vaccine ( - 2023-2 5 season) 2023 RSV Immunization or 60+ Years (1 - 1-dose 75+ series) 2032 Meningococcal B Vaccine Aged Out No l onger eligible based on patient's age to complete this topic Meningococcal Vaccine Aged Out No jac natasha eligible based on patient's age to complete this topic RSV Immunizations Under 20 Months Aged Out No longer eligible based on patient's age to complete this topic Care Teams Damper Maker Relationship Specialty Start Date End Date Sulaiman Tyler II, MD PCP - General 01/21/14
--- OUTSIDE RECORDS SUMMARY | 2024-11-02 09:10 | XMS_ITS | Patient Health Record ---
Author Organization [facility] Address [address] [place] [address] Care Team Providers Care Plant Operations Manager Name Role Phone Lalita Del Rio Primary Care Provider [phone] Allergies Allergen (clinical drug ingredient) Drug/Non Drug Allergy documented on EMR Reaction Allergy Type Onset Date Status Penicillin Unknown Drug Allergy Active prednisone Prednisone Unknown Drug Allergy Activ e Reason For Referral No Information Medications Medication SIG (Take, Route, Frequency, Duration) Notes Start Date End Date Status Albuterol Sulfate HFA 108 (90 Base) MCG/ACT INHALE 2 PUFFS BY MOUTH EVERY 4 HOURS Inhalation every 4 hrs; Duration: 30 days As needed for shortness of breath or wheezing Active Aspirin Low Dose 81 MG TAKE 1 TABLET BY MOUTH DAILY Oral Once a day; Duration: 30 days Active Carvedilol 3.125 MG Oral; Duration: 30 Days Not-Taking Doxycycline Hyclate 100 MG TAKE 1 TABLET BY MOUTH TWICE DAILY Oral; Duration: 5 Days Not-Taking Carvedilol 3.125 MG Oral; Duration: 30 Days Not-Taking predniSONE 20 MG Oral; Duration: 5 Days Not-Taking Furosemide 20 MG Oral; Duration: 30 Days Not-Taking Carvedilol 3.125 MG 1 tablet with food O ral Twice a day; Duration: 30 days Active Social History Tobacco Use: Social History Observation Description Date Details (start date - stop date) Current Smoker NA - NA Sex Assigned At : Social History Observation Description Sex Assigned At Male Tobacco Control (Standard) Question Answer Notes Tobacco use: Current smoker Problems Problem Type SNOMED Code ICD Code Onset Dates Problem Status W/U Status Risk Notes Problem Congestive heart failure (I50.9) Active confirmed Vital Signs Heart Rate 79 /min 12/31/2023 Respiratory Rate 18 /min 12/31/2023 Oximetry 98 % 12/31/2023 Blood pressure diastolic 60 mm Hg 12/31/2023 Height 67 in 12/31/2023 Blood pressure systolic 144 mm Hg 12/31/2023 Weight 113 lbs 12/31/2023 BMI 17.7 kg/m2 12/31/2023 Encounters Encounter Location Date Provider Diagnosis [address] [place] [address] 12/31/2023 Lalita Del Rio Congestive heart failure I50.9 and Shortness of breath on exertion R06.[address] [place] [address] 01/01/2024 Lalita Del Rio Assessments Encounter Date Diagnosis (ICD Code) Assessment Notes Treatment Notes Treatment Clinical Notes Section Notes 12/31/2023 Congestive heart failure (ICD-10 - I50.9) 12/31/2023 Shortness of breath on exertion (ICD-10 - R06.02) Plan Of Treatment No Information Insurance Providers Payer Name Payer Address Payer Phone Subscriber Number Group Number Insured Name Patient Relationship to Insured Coverage Start Date Coverage End Date [employer] MEDICARE ADV [address] [address] [place] [address] [id number] Charles Choudhury Self - patient is the insured 4 MEDICAID [id number] [place] [address] [id number] Charles Choudhury Self - patient is the insured 4 Medical (General) History Medical History History ICD Code Pulmonary edema Hospitalization History Reason Date(Month/Year) pnemonia 12/2023
--- NOTE | 2024-11-02 09:16 | ECG_ITS ---
Test Date: 2024-11-02 09:29:04 Measurements Intervals [place] Rate: 98 P: 147 CT: 145 QRS: -28 QRSD: 166 T: 151 QT: 407 QTc: 520 Interpretive Statements ECTOPIC ATRIAL RHYTHM POSSIBLE LEFT ATRIAL ENLARGEMENT [-0.1mV P-WAVE IN V1/V2] LEFT BUNDLE BRANCH BLOCK [120+ ms QRS DURATION, 80+ ms Q/S IN V1/V2, 85+ ms R IN I/aVL/V5/V6] Compared to ECG 02/28/2024 19:48:56 Ectopic atrial rhythm now present Electronically Signed On 11-02-2024 16:59:03 CDT by Missy Odom M.D.
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
[2024-11-02] MEDS: MORPHINE SULFATE (*CRX) 2 MG/ML INJ IV PUSH (09:38)
[2024-11-02] MEDS: ONDANSETRON INJ 4 MG/2 ML VIAL IV PUSH (09:38)
[2024-11-02 09:51] LABS: INR 1.1; Prothrombin Time 14.6 Seconds (11.1-14.7)
[2024-11-02 09:52] LABS: Partial Thromboplastin Time 26.3 Seconds (22.3-36.8)
[2024-11-02 09:54] LABS: NT Pro B Type Natriuretic Pept 17300 pg/mL (19.9-100); Troponin I 0.020 ng/mL (0.000-0.034)
[2024-11-02 10:05] VITALS: BP 131/82; PULSE 90; RESP 17; O2SAT 95
[2024-11-02 10:20] LABS: Cannabinoid Screen Urine Negative (Negative)
[2024-11-02] MEDS: FUROSEMIDE INJ 100 MG/10 ML VIAL 80 MG IV PUSH (10:37)
--- NOTE | 2024-11-02 10:49 | PC.NURSE ---
External catheter placed on patient
--- NOTE | 2024-11-02 12:03 | ECG_ITS ---
Test Date: 2024-11-02 12:11:35 Measurements Intervals [place] Rate: 95 P: 66 IA: 150 QRS: -53 QRSD: 169 T: 120 QT: 412 QTc: 519 Interpretive Statements SINUS RHYTHM POSSIBLE LEFT ATRIAL ENLARGEMENT [-0.1mV P-WAVE IN V1/V2] LEFT AXIS DEVIATION [QRS AXIS < -30] LEFT BUNDLE BRANCH BLOCK [120+ ms QRS DURATION, 80+ ms Q/S IN V1/V2, 85+ ms R IN I/aVL/V5/V6] Compared to ECG 11/02/2024 09:29:04 Ectopic atrial rhythm no longer present Electronically Signed On 11-02-2024 17:04:50 CDT by Missy Odom M.D.
[2024-11-02 12:50] LABS: Troponin I 0.021 ng/mL (0.000-0.034)
[2024-11-02 13:18] VITALS: BP 145/92; PULSE 94; RESP 20; O2SAT 98
[2024-11-02 14:30] VITALS: BP 151/89; PULSE 91; RESP 17; O2SAT 96
[2024-11-02 15:45] VITALS: BP 154/82; PULSE 97; RESP 20; TEMP 36.4; O2SAT 97
[2024-11-02] MEDS: ONDANSETRON HCL ODT 4 MG TABLET PO (15:51)
[2024-11-02] MEDS: traMADol HCL (*CRX) 50 MG TABLET PO (15:51)
== END 2024-11-02 17:22 ==
PROVIDERS: Student in an Organized Health Care Education/Training Program; Emergency Provider Registered Nurse
DX: M94.0 Chondrocostal junction syndrome [Tietze] (principal); J44.9 Chronic obstructive pulmonary disease, unspecified; I50.9 Heart failure, unspecified; Z86.19 Personal history of other infectious and parasitic diseases; G25.81 Restless legs syndrome; F17.210 Nicotine dependence, cigarettes, uncomplicated; F10.21 Alcohol dependence, in remission; I51.7 Cardiomegaly; I44.7 Left bundle-branch block, unspecified; R94.31 Abnormal electrocardiogram [ECG] [EKG]; Z79.82 Long term (current) use of aspirin; Z79.899 Other long term (current) drug therapy
CPT/HCPCS: 36415; 71275; 74177; 80053; 80307; 81001; 83690; 83880; 84484; 85025; 85380; 85610; 85730; 93005; 96374; 96375; 99284; A9270; J1938; J2270; J2405; Q9967